=== PATIENT | female | born 1945 | race Caucasian/White ===

== ENCOUNTER → 2016-10-16 | Outpatient (CLI) | payer OTHER ==
[~2016-10-16] MED LIST: ATOR10TA88 PO; CLTP PO; COEN1CAP10 PO; CYAN1SUB12 PO; EFFSR75 PO; EST5 PO; FISHOIL PO; MULT-506 PO; PANT1TAB48 PO; TUMMERIC PO; VENL150C56 PO
[2016-10-16 18:28] LABS: BASO % 0.5 %; BASO ABS # 0.03 K/uL (0-0.2); COMPLETE YES; EOS % 0.9 %; HEMATOCRIT 40.2 % (37-47); IG% 0.3 %; LYMPH % 36.2 %; LYMPH ABS # 2.11 K/uL (1.2-3.4); MEAN CELL VOLUME 92.8 fL (80-100); MEAN CORPUSCULAR HEMOGLOBIN 31.6 pg (25-34); MEAN CORPUSCULAR HGB CONC 34.1 g/dl (32-36); MEAN PLATELET VOLUME 10.5 fL (7.4-10.4); MONO % 9.1 %; PLATELET COUNT 262 K/uL (130-400); RED BLOOD COUNT 4.33 M/uL (4.2-5.4); WHITE BLOOD COUNT 5.83 K/uL (4.8-10.8)
[2016-10-16 18:31] LABS: ALT/SGPT 25 U/L (12-78); BLOOD UREA NITROGEN 11 mg/dl (7-18); BUN/CREATININE RATIO 14.4 (10-20); CALCIUM 8.8 mg/dl (8.5-10.1); CARBON DIOXIDE 28 mmol/L (21-32); CHLORIDE 104 mmol/L (98-107); CHOLESTEROL 225 mg/dl (0-200); CREATININE 0.75 mg/dl (0.60-1.20); GLUCOSE 88 mg/dl (70-99); SODIUM 140 mmol/L (136-145); TRIGLYCERIDES 113 mg/dl (0-150); VERY LOW DENSITY LIPOPROT CALC 23 mg/dl
[2016-10-16 18:34] LABS: ALB/GLOB RATIO 1.2 (0.9-2); ALKALINE PHOSPHATASE 71 U/L (45-117); AST/SGOT 15 U/L (15-37); CHOLESTEROL/HDL RATIO 3.8; HDL CHOLESTEROL 60 mg/dl; LDL CHOLESTEROL CALCULATED 142 mg/dl
== END | disposition home or self-care (01) ==
LOC: C.LABSPEC 17:57
PROVIDERS: ATTEND Family Medicine
DX: E78.2 Mixed hyperlipidemia (principal); K21.9 Gastro-esophageal reflux disease without esophagitis; F41.1 Generalized anxiety disorder

== ENCOUNTER → 2017-07-10 | Outpatient (CLI) | payer OTHER ==
[~2017-07-10] MED LIST changes: +ATOR10TA82 PO; -ATOR10TA88 PO; +PANT1TAB3 PO; -PANT1TAB48 PO
== END | disposition home or self-care (01) ==
LOC: C.LABSPEC 18:01
PROVIDERS: ATTEND Family Medicine
DX: R30.0 Dysuria (principal)

== ENCOUNTER 2018-06-17 05:49 | Inpatient (IN) ==
--- NOTE | 2018-05-27 16:22 | PAT Medication Instructions ---
Medication Instructions Date of Service May 27, 2018 Home Medications calcium carbonate-vitamin D3 2 tab PO QAM carbamazepine 200 mg PO QPM estradiol 0.5 mg PO QAM fluoxetine 40 mg PO QAM multivitamin 1 tab PO QAM pantoprazole 40 mg PO QAM ASK your prescriber and surgeon estradiol 0.5 mg PO QAM DO NOT take the morning of surgery calcium carbonate-vitamin D3 2 tab PO QAM multivitamin 1 tab PO QAM Take morning of surgery With a small sip of water, OTHERWISE NOTHING TO EAT OR DRINK AFTER MIDNIGHT: fluoxetine 40 mg PO QAM pantoprazole 40 mg PO QAM Take evening before surgery carbamazepine 200 mg PO QPM Other Notes If you have any questions please call us at [phone] or [phone] or [phone] or [phone]
--- NOTE | 2018-05-28 09:37 | Anesthesiology Consultation ---
Date of Service May 28, 2018 Assessment & Plan (1) Encounter for pre-operative examination: - Possible difficult intubation due to decreased cervical extension. Chart Review Chart Review: Acceptable Risk for Surgery and Patient seen in Pre Admission Testing Teaching & Discussion Pre-Anesthesia Teaching/Discussion Notes: Instructed NPO after midnight before surgery,except medications with 15 cc of water. Medication instructions provided according to the PAT guidelines. History Surgery Operation Date: 06/17/18 11:55 Proposed Procedures p C4-C6 Anterior Cervical Discectomy and Fusion - Cullen Amato DO Height/Weight Height: 5 ft 4 in Weight: 81.9 kg Allergies Allergy/AdvReac Type Severity Reaction Status Date / Time No Known Allergies Allergy Mild Verified 05/21/18 09:25 Medications Home Medications Medication Instructions Recorded Confirmed Last Taken calcium carbonate-vitamin D3 2 tab PO QAM 05/21/18 05/21/18 Unknown [Calcium 600 + D(3)] carbamazepine 200 mg PO QPM 05/21/18 05/21/18 Unknown estradiol 0.5 mg PO QAM 05/21/18 05/21/18 Unknown fluoxetine 40 mg PO QAM 05/21/18 05/21/18 Unknown multivitamin 1 tab PO QAM 05/21/18 05/21/18 Unknown pantoprazole 40 mg PO QAM 05/21/18 05/21/18 Unknown Past Medical History Medical History Anxiety Depression Diverticular disease Emphysema lung PER CXR GERD (gastroesophageal reflux disease) CONTROLLED Hiatal hernia Hyperlipidemia NO MEDS Obesity Osteoarthritis Peripheral neuropathy HANDS AND FEET/LEGS Past Family History Family History Sister Family history of diabetes mellitus Sister Family history of diabetes mellitus Brother Family history of diabetes mellitus Past Surgical History Surgical History Fusion of spine LUMBAR H/O exploratory laparotomy 2/2 ADHESIONS History of section X3 History of cholecystectomy History of hysterectomy History of neck surgery FUSION History of repair of rotator cuff LEFT Past Anesthesia History No Hx of Anesthesia Complications and No Family Hx of Anesthesia Complications History of PONV No Motion Sickness Screening History of Motion Sickness: No STOP BANG Total 2 Social History Smoking Status: Never smoker Do You Dip or Chew Tobacco: No Hx Alcohol Use: No Hx Substance Use: No substance use type: does not use Exercise / Class Metabolic Activity III < 4 Walking/Shop/Light housework Review of Systems Reflux controlled. Patient denies chest pain, shortness of breath, cough, wheezing, palpitations. Physical Exam Vital Signs VITALS BP 105/69 P 75 TEMP 98.0 SP02 95%RA RESP 18 PHYSICAL Decreased cervical extension Full TMJ range of motion. TMD 3 finger breaths Mallampati Score 2 Dentition: missing molars Lungs: clear throughout to auscultation Cardiac: regular rate and rhythm, no murmurs noted Spine: normal Carotid arteries: negative bruit Extremities: no edema Testing Electrocardiogram Date: 05/28/18 Findings: + NSR @ (71) Chest X-Ray Date: 05/28/18 Findings: + NAD Stable 8 mm nodule within the right midlung zone. Given the long-term stability this is likely benign. Mild emphysema. Laboratory Results 05/28/18 09:44 05/28/18 09:44 Blood Type A Positive 05/28/18 09:44 Antibody Screen NEGATIVE 05/28/18 09:44 PT 10.4 Seconds (9.0-12.0) 05/28/18 09:44 INR 1.0 (0.9-1.1) 05/28/18 09:44 APTT 25.1 Seconds (21.0-31.0) 05/28/18 09:44 Urine Color Dark Yellow 05/28/18 09:44 Urine Appearance Clear (Clear) 05/28/18 09:44 Urine pH 5.5 (4.5-7.5) 05/28/18 09:44 Ur Specific [place] 1.021 (1.000-1.030) 05/28/18 09:44 Urine Protein Negative (Negative) 05/28/18 09:44 Urine Glucose (UA) Negative (Negative) 05/28/18 09:44 Urine Ketones Trace (Negative) H 05/28/18 09:44 Urine Nitrite Negative (Negative) 05/28/18 09:44 Ur Leukocyte Esterase Negative (Negative) 05/28/18 09:44
[2018-05-28 10:43] LABS: Appearance Urine Clear (Clear); Bilirubin Urine Negative (Negative); Blood Urine Negative (Negative); Color Urine Dark Yellow; Glucose Urine UA Negative (Negative); Ketones Urine Trace (Negative); Leukocyte Esterase Urine Negative (Negative); Nitrite Urine Negative (Negative); Protein Urine Negative (Negative); Specific Gravity Urine 1.021 (1.000-1.030); Urobilinogen Urine Negative (Negative); pH Urine 5.5 (4.5-7.5)
[2018-05-28 10:48] LABS: Basophils # (auto) 0.03 K/uL (0-0.2); Basophils % (auto) 0.7 %; Eosinophils # (auto) 0.04 K/uL (0-0.5); Hematocrit (blood only) 40.8 % (37-47); Hemoglobin 13.9 g/dL (12.0-16.0); Lymphocytes # (auto) 1.33 K/uL (1.2-3.4); Lymphocytes % (auto) 32.1 %; Mean Corpuscular Hgb Conc 34.1 g/dL (32-36); Mean Platelet Volume 9.8 fL (7.4-10.4); Monocytes # (auto) 0.45 K/uL (0.11-0.59); Monocytes % (auto) 10.9 %; Neutrophils # (auto) 2.29 K/uL (1.4-6.5); Neutrophils % (auto) 55.3 %; Platelet Count 254 K/uL (130-400); RDW Coefficient of Variation 12.5 % (11.5-14.5); RDW Standard Deviation 43.1 fL (36.4-46.3); Red Blood Count 4.34 M/uL (4.2-5.4); White Blood Count 4.14 K/uL (4.8-10.8)
--- NOTE | 2018-05-28 10:49 | XRay Report ---
XR chest Pre-admission PA/Lat HISTORY: Preop. COMPARISON: Chest 07/10/2011. FINDINGS: Stable 8 mm nodule within the right midlung zone. Given the long-term stability this is lik yovana benign. Mild emphysema. No pneumothorax. No pleural effusions. Cervical spinal fusion hardware is noted. Prior cholecystectomy. The heart is normal in size. The left lung is clear. IMPRESSION: No significant change compared to the prior study. No acute process. Electronically signed by: Gennaro Michael M.D. 05/28/2018 10:48 AM
[2018-05-28 10:50] LABS: Calcium 8.8 mg/dl (8.5-10.1); Creatinine Clr Calc Pharmacy 75.1 ml/min; Est GFR (African American) 99.7
[2018-05-28 10:52] LABS: Partial Thromboplastin Ratio 0.9; Partial Thromboplastin Time 25.1 Seconds (21.0-31.0); Prothrombin Time 10.4 Seconds (9.0-12.0)
[2018-06-17] MEDS ORDERED: ACETAMINOPHEN 500 MG TAB PO SCH (06:00)
[2018-06-17] MEDS ORDERED: GABAPENTIN 300 MG PO SCH (06:00)
[2018-06-17] MEDS ORDERED: LR 15ML/HR IV SCH (06:00)
[2018-06-17] MEDS ORDERED: CEFAZOLIN 2000MG 2,000 MG/15 ML SYR IV SCH (06:00)
[2018-06-17] MEDS ORDERED: CeleBREX 200 MG CAP PO SCH (06:00)
[2018-06-17] MEDS ORDERED: DEXAMETHASONE SOD INJ 4 MG/ML VIAL ONE (06:53)
[2018-06-17] MEDS ORDERED: ONDANSETRON INJ 2 MG/ML 2 ML VIAL ONE (06:53)
[2018-06-17] MEDS ORDERED: LIDOCAINE HCL 2% 2 ML VIAL/AMP(20MG/ML) INFIL ONE (06:53)
[2018-06-17] MEDS ORDERED: GLYCOPYRROLATE 0.2 MG/ML VIAL ONE (06:53)
[2018-06-17] MEDS ORDERED: NEOSTIGMINE METHYLSULFATE 1 MG/ML 10ML VIAL ONE (06:53)
[2018-06-17] MEDS ORDERED: PROPOFOL IV EMULSION 10 MG/ML 20 ML VIAL IV ONE (06:53)
[2018-06-17] MEDS ORDERED: MIDAZOLAM HCL 1 MG/ML 2ML VIAL ONE (06:54)
[2018-06-17] MEDS ORDERED: fentaNYL citrate 100 MCG/2 ML VIAL ONE ×2 (06:54→08:12)
[2018-06-17] MEDS ORDERED: BACITRACIN INJ 50,000 UNIT VIAL ONE (07:04)
--- NOTE | 2018-06-17 07:29 | History & Physical Bridge Note ---
Date of Service June 17, 2018 History & Physical Bridge Note I have examined the patient, reviewed the History & Physical and in the interval since the performance of the History & Physical I have noted the following changes of clinical significance: no changes noted
[2018-06-17] MEDS ORDERED: ATROPINE SULFATE 0.1 MG/ML 10ML SYR IV PRN (07:32)
[2018-06-17] MEDS ORDERED: ePHEDrine sulfate 50 MG/ML AMP IV PRN (07:32)
[2018-06-17] MEDS ORDERED: ONDANSETRON INJ 2 MG/ML 2 ML VIAL IV PRN ×2 (07:32→10:51)
--- NOTE | 2018-06-17 07:35 | History & Physical Report ---
Date of Service June 17, 2018 Assessment & Plan (1) Cervical stenosis of spinal canal: Anterior cervical discectomy and fusion C4-5 Present on Admission?: Yes History of Present Illness Chief Complaint: Neck and arm pain Primary Care Provider: Flaquito Ward This is a 73-year-old female but with presents with chronic persistent neck and arm pain. After failing extensive course of nonoperative care she is here for surgical intervention. Allergies Allergy/AdvReac Type Severity Reaction Status Date / Time No Known Allergies Allergy Mild Verified 06/17/18 06:16 Home Medications Home Medications Medication Instructions Recorded Confirmed Type calcium carbonate-vitamin D3 2 tab PO QAM 05/21/18 06/17/18 History [Calcium 600 + D(3)] carbamazepine 200 mg PO QPM 05/21/18 06/17/18 History estradiol 0.5 mg PO QAM 05/21/18 06/17/18 History fluoxetine 40 mg PO QAM 05/21/18 06/17/18 History multivitamin 1 tab PO QAM 05/21/18 06/17/18 History pantoprazole 40 mg PO QAM 05/21/18 06/17/18 History Past Med/Surg History Family History Sister Family history of diabetes mellitus Sister Family history of diabetes mellitus Brother Family history of diabetes mellitus Social History Preferred Language: Occitan Communication Ability: Effective Pest Control Pilot Required: No Beliefs That Will Affect Care: None Current Living Situation: Spouse Other Information That Helps Us Care for You: No Feels Safe at Home: Yes Safety Concerns: Feels Safe At This Time Smoking Status: Never smoker Hx Alcohol Use: No Hx Substance Use: No Physical Exam Vital Signs (Past 24 Hours): Last Vital Signs Temp 36.7 C 06/17/18 06:30 Pulse 75 06/17/18 06:30 Resp 20 06/17/18 06:30 BP 148/77 H 06/17/18 06:30 Pulse Ox 96 06/17/18 06:30 Results & Data Medications Administered Acetaminophen (Tylenol) 1,000 mg PO PREOP PRITESH Stop: 06/17/18 18:00 Last Admin: 06/17/18 06:33 Dose: 1,000 mg Documented by: [id number] Celecoxib (Celebrex) 200 mg PO PREOP PRITESH Stop: 06/17/18 18:00 Last Admin: 06/17/18 06:32 Dose: 200 mg Documented by: [id number] Gabapentin (Neurontin) 300 mg PO PREOP PRITESH Stop: 06/17/18 18:00 Last Admin: 06/17/18 06:33 Dose: 300 mg Documented by: [id number] Lactated Ringer's (Lr) 1,000 mls @ 15 mls/hr IV .Q24H PRITESH Stop: 06/18/18 05:59 Last Admin: 06/17/18 06:32 Dose: 15 mls/hr Documented by: [id number]
[2018-06-17] MEDS ORDERED: ROCURONIUM BROMIDE 10 MG/ML 5 ML VIAL ONE (08:48)
[2018-06-17] MEDS ORDERED: FLOSEAL HEMOSTATIC MATRIX 10ML TOP ONE (08:49)
--- NOTE | 2018-06-17 09:00 | Operative Report ---
Post Operative Report Pre & Post Diagnosis Operation Date: 06/17/18 07:45 Pre-Op Diagnosis: Cervical spinal stenosis with radiculopathy Post-Op Diagnosis: Same Procedure Operation Date: 06/17/18 07:45 Actual Procedures #1 anterior cervical discectomy bilateral foraminotomies C4-5 per #2 anterior cervical arthrodesis C4-5 per #3 placement of cortical autograft 7 mm in height filled with DBM C4-5. 4 placement of globus plate and screws at C4-5. Surgeon Cullen Amato DO Tenter Comfort Cobos Estimated Blood Loss 10 Findings Consistent with Post-Op Diagnosis Specimens None Description of Procedure Patient was met with preoperatively case discussed all questions addressed. After informed consent obtained patient was taken to the operative suite underwent intubation and placed in supine position the Delmar table with head Pavon kettle operator head. All bony prominences well-padded eyes inspected to ensure no external pressure placed upon the peer at this point the anterior cervical spine was prepped and draped in the normal sterile fashion. With the assistance of fluoroscopy the C4-5 disc space was identified and a transverse incision was placed on the right anterior aspect of the cervical spine overlying this region. Sharp dissection the assistance of bipolar electrocautery was performed down to and exposing the anterior cervical spine at C4-5. I verified my position with fluoroscopy. Self-retaining retractors placed. Also used [place] distracting pins. Removed the entire disc including all posterior annular fibers and longitudinal ligament to perform bilateral foraminotomies. Endplates were then burred to subcortical bleeding bone and a 7 mm cortical allograft filled with DBM tamped in position. Globus plate was also attached and locked into position with fluoroscopic visualization. The incision was then copiously irrigated and explored to ensure no damage to surrounding structures remaining bleeding. 10 round DOLLY drain inserted. Incision was then closed with 2 Vicryl fascia for Monocryl final skin closure. Steri-Strips dressings placed. Patient will continue to PACU stable condition. Please note Comfort Cobos present at the entire procedure involved the patient positioning complex portions of the surgery and final skin closure. I attest to the content of the Intraoperative Record and any orders documented therein. Any exceptions are noted below.
--- NOTE | 2018-06-17 09:26 | Fluoroscopy Report ---
FL cervical 2-3V HISTORY: 73 years-old Female ACDF C4-C5 status post fusion of the cervical spine COMPARISON: Cervical spine MRI 08/10/2010 TECHNIQUE: 2 spot fluoroscopic images of the cervical spine were obtained utilizing 6.7 seconds fluor oscopy time FINDINGS: The study is limited secondary to overlying soft tissue obscuring the lower cervical spinal segments. Anterior fusion hardware changes noted at the C4-C5 and C5-C6 levels. Alignment appears satisfactory on these images. Note is made of spondylitic spurring with facet arthrosis. Endotracheal tube overli es the midline. IMPRESSION: Fluoroscopic assistance as above. The above report was generated using voice recognition software. It may contain grammatical, syntax o r spelling errors. Electronically signed by: Juancho Marti M.D. 06/17/2018 9:25 AM
[2018-06-17] MEDS: fentaNYL citrate 100 MCG/2 ML VIAL IV PRN ×2 (09:47→09:52)
[2018-06-17] MEDS: HYDROmorphone INJ 1 MG/ML SYRINGE IV PRN ×4 (10:00→10:15)
--- NOTE | 2018-06-17 10:43 | Anesthesiology Progress Note ---
Date of Service June 17, 2018 Anesthesia Post Procedure Vital Signs Vital Signs: Temp Pulse Pulse Resp BP Pulse Ox 06/17/18 10:35 36.8 C 91 H 15 140/67 99 06/17/18 10:25 89 19 137/67 98 06/17/18 10:15 85 16 139/77 99 06/17/18 10:05 85 16 153/72 H 99 06/17/18 09:55 81 16 145/75 H 100 06/17/18 09:45 84 16 150/73 H 100 06/17/18 09:35 91 H 16 152/76 H 100 06/17/18 09:25 95 H 16 149/71 H 97 06/17/18 09:15 87 16 141/69 H 96 06/17/18 09:09 36.0 C L 86 16 159/74 H 96 06/17/18 06:30 36.7 C 75 20 148/77 H 96 Pain Intensity Neck: Pain Intensity: 4 Notes Mental Status: alert / awake / arousable and participated in evaluation Patient Amnestic to Procedure: Yes Nausea / Vomiting: adequately controlled Pain: adequately controlled Airway Patency, RR, SpO2: stable & adequate BP & HR: stable & adequate Hydration State: stable & adequate Anesthetic Complications: no major complications apparent and Pt Satisfied with anesthetic care
[2018-06-17] MEDS ORDERED: DO NOT ADMINISTER FLU VACCINE PRN (10:51)
[2018-06-17] MEDS ORDERED: LORazepam 0.5 MG/1 ML VIAL IV PRN (10:51)
[2018-06-17] MEDS ORDERED: RACEPINEPHRINE 2.25% NEBU SOLN 0.5 ML VIAL INH PRN (10:51)
[2018-06-17] MEDS ORDERED: DiphenhydrAMINE HCL 50 MG/ML VIAL IV PRN (10:51)
[2018-06-17] MEDS ORDERED: ACETAMINOPHEN 1,000 MG/100 ML VIAL IV PRN (10:51)
[2018-06-17] MEDS ORDERED: NALOXONE HCL 0.4 MG/1 ML VIAL/CARP IV PRN (10:51)
[2018-06-17] MEDS ORDERED: DO NOT ADMINISTER PNEUMOCOCCAL VACCINE PRN (10:51)
[2018-06-17] MEDS ORDERED: DEXAMETHASONE SOD PHOSPHATE 8 MG in SYRINGE 0 ML IV PRN (10:51)
[2018-06-17] MEDS ORDERED: MAGNESIUM HYDROXIDE SUSP 30 ML UDC PO PRN (10:51)
[2018-06-17] MEDS ORDERED: SCOPOLAMINE 1.5 MG TDSY TD SCH (12:00)
[2018-06-17] MEDS: LACTATED RINGER'S 1,000 ML IV SCH ×2 (12:05→23:39)
[2018-06-17] MEDS: OXYCODONE HCL IR 5 MG TAB (IMMEDIATE RELEASE) PO PRN ×2 (14:33→20:31)
[2018-06-17] MEDS: CEFAZOLIN 2000MG 2,000 MG/15 ML SYR IV SCH ×2 (16:03→23:38)
[2018-06-17] MEDS: CHECK SCOPOLAMINE PATCH PLACEMENT SCH ×2 (16:31→23:38)
[2018-06-17] MEDS: HYDROmorphone INJ 0.5 MG/0.5 ML SYR IV PRN ×2 (18:06→23:02)
[2018-06-17] MEDS: DOCUSATE SODIUM 100 MG CAP PO SCH (20:36)
[2018-06-17] MEDS: CARBAMAZEPINE 200 MG TABCR PO SCH (20:36)
[2018-06-17] MEDS: LORazepam 0.5 MG TAB PO PRN (21:59)
[2018-06-18] MEDS: OXYCODONE HCL IR 5 MG TAB (IMMEDIATE RELEASE) PO PRN ×3 (06:55→19:30)
[2018-06-18] MEDS: CEFAZOLIN 2000MG 2,000 MG/15 ML SYR IV SCH (07:37)
[2018-06-18] MEDS: HYDROmorphone INJ 0.5 MG/0.5 ML SYR IV PRN ×2 (07:37→21:50)
[2018-06-18] MEDS: CHECK SCOPOLAMINE PATCH PLACEMENT SCH ×3 (07:37→23:43)
--- NOTE | 2018-06-18 08:05 | Anesthesiology Progress Note ---
Date of Service June 18, 2018 Anesthesia Post Procedure Vital Signs Vital Signs: Temp Pulse Pulse Pulse Resp BP Pulse Ox 06/18/18 07:55 06/18/18 07:44 69 16 94 06/18/18 07:06 36.5 C 70 19 129/68 100 06/18/18 05:55 36.5 C 71 18 128/69 97 06/18/18 03:55 36.5 C 67 16 121/69 97 06/18/18 03:25 74 16 98 06/18/18 01:55 36.5 C 72 18 128/71 97 06/17/18 23:55 36.7 C 79 18 127/72 97 06/17/18 23:00 89 18 98 06/17/18 22:01 36.7 C 79 20 142/75 H 99 06/17/18 20:45 76 98 06/17/18 19:55 36.6 C 89 18 131/72 98 06/17/18 19:25 93 H 14 99 06/17/18 18:05 36.7 C 86 16 125/74 98 06/17/18 16:41 83 98 06/17/18 15:54 36.7 C 90 20 125/65 98 06/17/18 13:56 36.6 C 97 H 16 127/75 97 06/17/18 12:50 36.4 C L 98 H 16 126/74 97 06/17/18 11:55 36.6 C 94 H 16 117/68 97 06/17/18 11:29 36.5 C 87 16 119/69 98 06/17/18 11:17 87 18 98 06/17/18 10:55 36.5 C 96 H 18 136/70 98 06/17/18 10:45 36.8 C 90 16 138/67 99 06/17/18 10:35 36.8 C 91 H 15 140/67 99 06/17/18 10:25 89 19 137/67 98 06/17/18 10:15 85 16 139/77 99 06/17/18 10:05 85 16 153/72 H 99 06/17/18 09:55 81 16 145/75 H 100 06/17/18 09:45 84 16 150/73 H 100 06/17/18 09:35 91 H 16 152/76 H 100 06/17/18 09:25 95 H 16 149/71 H 97 06/17/18 09:15 87 16 141/69 H 96 06/17/18 09:09 36.0 C L 86 16 159/74 H 96 Pulse Ox 06/18/18 07:55 98 06/18/18 07:44 06/18/18 07:06 06/18/18 05:55 06/18/18 03:55 06/18/18 03:25 06/18/18 01:55 06/17/18 23:55 06/17/18 23:00 06/17/18 22:01 06/17/18 20:45 06/17/18 19:55 06/17/18 19:25 06/17/18 18:05 06/17/18 16:41 06/17/18 15:54 06/17/18 13:56 06/17/18 12:50 06/17/18 11:55 06/17/18 11:29 06/17/18 11:17 06/17/18 10:55 98 06/17/18 10:45 06/17/18 10:35 06/17/18 10:25 06/17/18 10:15 06/17/18 10:05 06/17/18 09:55 06/17/18 09:45 06/17/18 09:35 06/17/18 09:25 06/17/18 09:15 06/17/18 09:09 Pain Intensity Neck: Pain Intensity: 8 Left Shoulder: Pain Intensity: 8 Notes Mental Status: alert / awake / arousable and participated in evaluation Patient Amnestic to Procedure: Yes Nausea / Vomiting: adequately controlled Pain: adequately controlled Airway Patency, RR, SpO2: stable & adequate BP & HR: stable & adequate Hydration State: stable & adequate Anesthetic Complications: no major complications apparent and Pt Satisfied with anesthetic care
[2018-06-18] MEDS: FLUOXETINE HCL 20 MG CAP PO SCH (08:32)
[2018-06-18] MEDS: PANTOprazole 40 MG TAB PO SCH (08:32)
[2018-06-18] MEDS: CALCIUM 600MG + VIT D 400 IU TAB PO SCH (08:32)
[2018-06-18] MEDS: MULTIVITAMIN TAB PO SCH (08:32)
[2018-06-18] MEDS: ESTRADIOL 1 MG TAB PO SCH (08:32)
[2018-06-18] MEDS: DOCUSATE SODIUM 100 MG CAP PO SCH ×2 (08:33→20:48)
--- NOTE | 2018-06-18 10:06 | Orthopedic Progress Note ---
Date of Service June 18, 2018 Assessment & Plan (1) Cervical stenosis of spinal canal: Patient continues to have some left arm symptoms postoperative. This is more along the lines of the C6-7 pattern. We addressed the 4 5 level. I will give her a short course of IV steroids to see how she responds. We may need to consider further imaging of the neck if she fails to improve. Present on Admission?: Yes Subjective Patient complaining of some cervicalgia and left shoulder and arm pain. This is new in onset. Physical Exam Vital Signs (Past 24 Hours): Last Vital Signs Temp 36.5 C 06/18/18 09:40 Pulse 72 06/18/18 09:40 Resp 15 06/18/18 09:40 BP 132/75 06/18/18 09:40 Pulse Ox 96 06/18/18 09:40 Physical Exam: On exam she is somewhat uncomfortable. DOLLY drain decreasing ap propriately. Is reasonable strength testing upper extremity on the left and right. Does exhibit tenderness to palpation of the parascapular region on the left.
[2018-06-18] MEDS: DEXAMETHASONE SOD PHOSPHATE 8 MG in SYRINGE 0 ML IV SCH ×2 (11:16→19:31)
[2018-06-18] MEDS: LORazepam 0.5 MG TAB PO PRN (20:47)
[2018-06-18] MEDS: CARBAMAZEPINE 200 MG TABCR PO SCH (20:48)
[2018-06-19] MEDS: DEXAMETHASONE SOD PHOSPHATE 8 MG in SYRINGE 0 ML IV SCH (03:47)
[2018-06-19] MEDS: ESTRADIOL 1 MG TAB PO SCH (08:30)
[2018-06-19] MEDS: CHECK SCOPOLAMINE PATCH PLACEMENT SCH (08:30)
[2018-06-19] MEDS: PANTOprazole 40 MG TAB PO SCH (08:31)
[2018-06-19] MEDS: CALCIUM 600MG + VIT D 400 IU TAB PO SCH (08:31)
[2018-06-19] MEDS: FLUOXETINE HCL 20 MG CAP PO SCH (08:31)
[2018-06-19] MEDS: MULTIVITAMIN TAB PO SCH (08:31)
[2018-06-19] MEDS: DOCUSATE SODIUM 100 MG CAP PO SCH (08:31)
[2018-06-19] MEDS: OXYCODONE HCL IR 5 MG TAB (IMMEDIATE RELEASE) PO PRN (08:34)
[2018-06-19] MEDS ORDERED: BISACODYL 5 MG TABEC PO PRN (09:00)
--- NOTE | 2018-06-19 13:54 | Discharge Summary ---
Date of Service June 19, 2018 Admission HPI Per Admitting Provider This is a 73-year-old female but with presents with chronic persistent neck and arm pain. After failing extensive course of nonoperative care she is here for surgical intervention. Principal Diagnosis Cervical spinal stenosis with radiculopathy Discharge Data Allergies Allergy/AdvReac Type Severity Reaction Status Date / Time No Known Allergies Allergy Mild Verified 06/17/18 06:16 Procedures Performed Operation Date: 06/17/18 07:45 Actual Procedures p C4-C5 Anterior Cervical Discectomy and Fusion(Not Applicable) - Cullen Amato DO Ordered Studies 06/17/18 07:45 FL cervical 2-3V Routine FL fluoroscopy <1hr Routine Hospital Course (1) Cervical stenosis of spinal canal: Patient underwent anterior cervical discectomy and fusion tolerated this well was taken to the orthopedic floor. Postoperatively she was having significant cervicalgia and arm symptoms week elected to keep her 1 more day. She did well the following day DOLLY drain decreasing appropriately. Subsequently discharged home. Discharge orders and instructions found in the chart for further review. Total Time Total Time Spent Total Time Spent (In Minutes): Not applicable Discharge Plan Discharge Items Patient Disposition: Home - Self-Care Reason For Visit: Spinal Stenosis, Cervical Region Discharge Diagnosis: cervical stenosis Discharge Goals: Decrease discomfort Activity: Per 'Additional Instructions' section Non-emergency contact: Primary Care Provider Call non-emergency contact if: you have any medication questions Follow-up/Referrals: Flaquito Ward DO [Primary Care Provider] - Diet: Regular Addtl Provider Instructions: ACTIVITY RECOMMENDATIONS: SELF CARE INSTRUCTIONS AFTER CERVICAL FUSIONS 1. No smoking. Smoking drastically decreases the chance of a solid fusion. 2. No bending, lifting more than 5 pounds, or twisting (roll like a log when turning in bed). 3. You may shower 3 days after surgery. Thoroughly dry wound. Do not soak in the tub. 4. Cervical collar: Must be worn at all times including sleeping. You may remove the brace only to bath, eat and if you are sitting in a recliner. 5. Please walk as much as you can for exercise. Gradually increase the distance that you walk as your endurance increases. SPECIAL CARE INSTRUCTIONS: VERY IMPORTANT TO READ AND REVIEW A. Do not take any anti-inflammatory medications (i.e. Indocin, Advil, Aspirin, Naprosyn, Aleve, Motrin, etc.) as these may inhibit the chance of a solid fusion. Tylenol is okay to take. B. Your surgical incision has been closed with a cosmetic suture under the skin that will dissolve in about 6 weeks. In 14 days, you can use a pair of clean scissors and cut the suture that is left outside of the skin at the ends of your incision. C. Complications are uncommon, but please contact us if you have any signs or symptoms of: 1. wound infection (fever higher than 102.5 degrees F, redness, separation of wound, drainage, or increasing pain from the incision) 2. blood clots in legs (pain, swelling, redness and warmth in legs) 3. urinary tract infection (fever higher than 102.5 degrees, burning upon urination or increased frequency of urination) 4. nerve problems (inability to walk on your toes or heels, numbness, loss of bowel or bladder control) 5. any other symptoms that concern you. D. Please call the office at if you have any concerns or questions about your operation or recovery. MANAGING PAIN AFTER SPINAL SURGERY 1. Narcotic medication is intended for short-term use and will be provided for surgical pain. Surgical pain usually lasts for a period of 4-6 weeks. Narcotic medication includes Percocet, Vicodin, Darvocet, Tylenol #3 or Lortab. 2. Longer-term pain is more appropriately treated with non-narcotic medication such as Tylenol ES. 3. Muscle spasm is not appropriately treated with narcotics. Muscle relaxers such as Soma, Flexeril or Skelaxin can be used along with Tylenol ES. 4. Remember that we all live with some "aches and pains". This is not unusual or uncommon after an injury or as we get older. 5. We will provide appropriate medication within the normal guidelines of their prescribed use. We will also be very cautious and aware of potential abuse and extended duration of patients' medication needs. 6. Please allow 2-3 days to process refills. Prescriptions will not be mailed but must be picked up at the office. FOLLOW UP VISIT: Keep your scheduled follow-up appointment. Any questions, please call the office at . Prescriptions: New oxycodone 5 mg Tablet 5 mg PO Q4H PRN (Reason: Pain) Qty: 30 RF: 0 Continued multivitamin Tablet 1 tab PO QAM RF: 0 fluoxetine 40 mg Capsule 40 mg PO QAM RF: 0 pantoprazole 40 mg Tablet,Delayed Release (Dr/Ec) 40 mg PO QAM RF: 0 estradiol 0.5 mg Tablet 0.5 mg PO QAM RF: 0 Calcium 600 + D(3) 600 mg calcium- 200 unit Capsule 2 tab PO QAM RF: 0 carbamazepine 200 mg tablet extended release 12 hr 200 mg PO HS RF: 0 Stand-Alone Forms: [facility] [employer], Opioid Pain Management [facility]/Other Patient Handouts: Neuropathy Peripheral Discharge Orders: Discharge Order (Routine); Ordered 06/19/18 Ordered By: Cullen Amato Admission Data Admit Date/Time: 06/17/18 09:04 Attending Provider: Cullen Amato Admit Provider: Cullen Amato Primary Care Provider: Flaquito Ward Service: Surgical Services Other Interventions: Discharge Summary Assessment (RN) Last Done: 06/19/18 09:57 DC Date/Time DO NOT enter until pt leaves facility: 06/19/18 10:27
== END 2018-06-19 10:27 | disposition home or self-care (01) | DRG 473 ==
LOC: ASU 05:49 → 3E 09:04

== ENCOUNTER 2018-10-01 23:53 | Inpatient (IN) ==
--- OUTSIDE RECORDS SUMMARY | 2018-10-02 01:43 | External Medical Summary | Continuity of Care Document ---
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 Rogers Saravia Start: 07-Jan-2013 Quantity: 25 Refills: 0 FLUoxetine HCl CAPS; 60mg BID Refills: 0 Omeprazole 20 MG Oral Tablet Delayed Release; Take 1 tablet daily Refills: 0 Fish Oil 1000 MG Oral Capsule; TAKE 1 CAPSULE DAILY. Refills: 0 Calcium 600 + D TABS; Take 1 tablet twice daily Refills: 0 Aspirin 81 MG TABS; TAKE 1 TABLET DAILY. Rogers Saravia Start: 07-Jan-2013 Quantity: 30 Refills: 0 Metoprolol Succinate ER 25 MG Oral Table t Extended Release 24 Hour; TAKE 1 TABLET BY MOUTH DAILY Rogers Saravia Start: 07-Jan-2013 Quantity: 30 Refills: 0 Multi Vitamin/Minerals TABS; TAKE 1 TABLET DAILY. Refills: 0 Procedures Procedures not documented Immunizations Immunizations not documented Family History Unknown Family Member Family history of Acute Myocardial Infarction Status: Active Comments: Family History (V17.3) Family history of Cancer Status: Active Comments: Famil y History Plan of Treatment Planned Observations Planned Goals not documented Results No Known Results Results not documented
[2018-10-02] MEDS ORDERED: HYDROmorphone INJ 1 MG/ML SYRINGE IV STA (02:01)
[2018-10-02] MEDS ORDERED: ONDANSETRON INJ 2 MG/ML 2 ML VIAL IV PRN (02:33)
[2018-10-02] MEDS ORDERED: ACETAMINOPHEN 325 MG TAB PO PRN (02:33)
[2018-10-02] MEDS ORDERED: POLYETHYLENE (MIRALAX) 17 GM PACK PO PRN (02:33)
[2018-10-02] MEDS: SODIUM CHLORIDE 0.9% 1000ML 1,000 ML IV SCH ×3 (02:49→23:09)
--- NOTE | 2018-10-02 03:40 | History and Physical Report ---
DATE OF ADMISSION: 10/02/2018 CHIEF COMPLAINT: Status post fall and right ankle fracture. HISTORY OF PRESENT ILLNESS: This is a 73-year-old female with past medical history significant for depression, GERD, peripheral neuropathy, who presents with fall and right ankle fracture. The patient was watering her plants when suddenly she slipped and fell and she could not get up and she went to the [facility] ER. X-rays were done which showed right comminuted trimalleolar fracture and dislocation and it was reduced in the ER and the repeat x-ray showed highly comminuted trimalleolar fracture status post reduction improved tibio-talar alignment, but patient had significant pain and there was question of surgery and the patient wanted to get transferred to [facility] and she was transferred here. Complains of severe pain in the right ankle region status post wrapped around. Otherwise, she was doing okay. She can ambulate okay. Lives with her . Denies any headache. No blurred vision, no earache, no runny nose, no sore throat, no difficulty swallowing. No chest pain, no shortness of breath. No cough, no fever, no chills, no nausea, no abdominal pain. Normal bowel and bladder movements. No blood in the stools, no burning micturition. She recently had cervical spine surgery and that healed well. Denies any other complaints. ALLERGIES: No known drug allergies. PAST MEDICAL HISTORY: As mentioned above. PAST SURGICAL HISTORY: Carpal tunnel surgery, cervical hemilaminectomy, , colonoscopy, EGDs, laparoscopic cholecystectomy, lumbar spine fusion surgery, partial removal of the eye fluid, cataract surgery, repair of the rotator cuff on the left side, total abdominal hysterectomy with removal of tubes. MEDICATIONS: The patient is on fluoxetine 40 mg p.o. daily, oxycodone 5 mg p.o. q. 4 hours p.r.n., cyclobenzaprine 10 mg p.r.n., estradiol 0.5 mg p.o. daily, Protonix 40 mg p.o. daily, calcium plus D 2 tablets daily. FAMILY HISTORY: Significant for sister who had cancer, diabetes. SOCIAL HISTORY: , lives with her . No smoking history. No alcohol, no drug use. REVIEW OF SYMPTOMS: As per HPI. Rest of the review of systems negative. PHYSICAL EXAMINATION: GENERAL: The patient is of moderate build, not in acute distress. VITAL SIGNS: Currently not available. HEENT: No pallor, no icterus. Extraocular muscles intact. NECK: No JVD, no neck masses, no carotid bruits. CARDIOVASCULAR: S1, S2 heard, regular rate and rhythm, no murmur, no gallop. RESPIRATORY SYSTEM: Normal AP diameter. No accessory muscle use. No wheezing, no crackles. ABDOMEN: Soft, bowel sounds present, nontender. No distention. CENTRAL NERVOUS SYSTEM: Cranial nerves II-XII grossly normal. Alert and oriented. Obeys simple commands. Nonfocal. EXTREMITIES: Right lower extremity wrapped. Left lower extremity, no edema, no erythema seen. LABORATORIES: Labs are not available at this time. IMAGING STUDIES: Done at [facility] shows comminuted trimalleolar fracture with dislocation on the right side. ASSESSMENT AND PLAN: This is a 73-year-old female who presents with mechanical fall and acute right trimalleolar fracture on the right side. 1. Acute right trimalleolar fracture secondary to mechanical fall. Was transferred from [facility]. We will keep her n.p.o., IV fluids, IV antiemetics, IV pain meds p.r.n. Get a chest x-ray and EKG and labs. If the chest x-ray, EKG, and labs are okay, the patient should be at acceptable risks to proceed with surgery. Will consult orthopedics. 2. History of peripheral neuropathy. The patient is no longer taking carbamazepine. 3. History of depression. Continue fluoxetine. 4. Gastroesophageal reflux disease, continue Protonix. 5. Deep venous thrombosis prophylaxis. Could not place on SCDs because of fracture of the right ankle. No anticoagulation for possible procedure. DVT prophylaxis as per orthopedics. DISPOSITION: Admit to medical floor. Expect to discharge home. PT and OT prior to discharge. Social Service to help with discharge planning. TACOS
[2018-10-02] MEDS: OXYCODONE HCL IR 5 MG TAB (IMMEDIATE RELEASE) PO PRN ×5 (03:49→23:55)
[2018-10-02] MEDS ORDERED: HYDROmorphone INJ 0.5 MG/0.5 ML SYR IV STA (04:40)
[2018-10-02 05:34] LABS: Basophils # (auto) 0.02 K/uL (0-0.2); Basophils % (auto) 0.3 %; Eosinophils # (auto) 0.02 K/uL (0-0.5); Eosinophils % (auto) 0.3 %; Hemoglobin 11.5 g/dL (12.0-16.0); Immature Granulocytes # (auto) 0.01 K/uL (0.00-0.02); Immature Granulocytes % (auto) 0.1 %; Lymphocytes # (auto) 1.89 K/uL (1.2-3.4); Mean Corpuscular Hgb Conc 32.9 g/dL (32-36); Mean Corpuscular Volume 94.3 fL (80-100); Mean Platelet Volume 9.8 fL (7.4-10.4); Monocytes # (auto) 0.62 K/uL (0.11-0.59); Monocytes % (auto) 8.5 %; Neutrophils % (auto) 64.8 %; Platelet Count 229 K/uL (130-400); RDW Coefficient of Variation 12.6 % (11.5-14.5); RDW Standard Deviation 43.1 fL (36.4-46.3); Red Blood Count 3.71 M/uL (4.2-5.4); White Blood Count 7.26 K/uL (4.8-10.8)
[2018-10-02 05:45] LABS: Partial Thromboplastin Ratio 0.9; Partial Thromboplastin Time 24.1 Seconds (21.0-31.0); Prothrombin Time 10.5 Seconds (9.0-12.0)
[2018-10-02 05:54] LABS: BUN Creatinine Ratio 15.3 (10-20); Calcium 8.2 mg/dl (8.5-10.1); Creatinine Clr Calc Pharmacy 62.5 ml/min; Est GFR (African American) 81.1; Potassium 3.9 mmol/L (3.5-5.1)
--- NOTE | 2018-10-02 07:30 | XRay Report ---
XR chest 1V portable HISTORY: pre op COMPARISON: Chest 05/28/2018. FINDINGS: Stable 8 mm nodule within the right midlung zone. This favors a benign nodule given the paris g-term stability. No new focal lung consolidations. The heart is top normal in size. This remains unc hanged. No evidence for pulmonary edema. No pleural effusions. No pneumothorax. Cervical spinal fusio n hardware is again noted. IMPRESSION: No significant change compared to the prior study. No acute process. Electronically signed by: Gennaro Michael M.D. 10/02/2018 7:29 AM
[2018-10-02] MEDS: HYDROmorphone INJ 0.5 MG/0.5 ML SYR IV PRN ×3 (07:53→21:10)
[2018-10-02] MEDS: CALCIUM 600MG + VIT D 400 IU TAB PO SCH (08:18)
[2018-10-02] MEDS: FLUOXETINE HCL 20 MG CAP PO SCH (08:18)
[2018-10-02] MEDS: PANTOprazole 40 MG TAB PO SCH (08:18)
[2018-10-02] MEDS: MULTIVITAMIN TAB PO SCH (08:18)
--- NOTE | 2018-10-02 11:48 | Orthopedic Consultation ---
Date of Consultation October 02, 2018 Assessment & Plan (1) Trimalleolar fracture of right ankle: Continue splint for now. Ice and elevation on 2 pillows. Continue current pain regimen. I increased her oxycodone from 1 tablet every 4 hours to 2 tablets every 4 hours as needed. A short-term dose of Toradol will also be given for pain control. She is also getting hydromorphone 0.5 mg IV every 3 hours. She will need ORIF of her ankle fracture. Depending on the surgical schedule, this may be done later today versus tomorrow. I will be discussing the case with [place] [facility] physicians and plan for scheduling the surgery. Addendum: Discussed the case with Dr. Tejada. He will plan on doing her surgery tomorrow morning. NPO after midnight ordered. I discussed the plan with the patient and she is in agreement. History of Present Illness Reason for Consultation: Right ankle fracture Attending Physician: Harmony Mark MD History of Present Illness Patient is a 73-year-old white female who states that yesterday evening she was out side watering her tomato plants. She ended up slipping in the grass and twisting her ankle and falling onto her leg. She had immediate pain in the ankle with some deformity and was unable to ambulate. She was taken to [facility] where she was seen by the emergency room staff. It was found that she had a trimalleolar ankle fracture. A reduction was done of the ankle there and she was placed in a splint. Patient wanted to be treated at [facility] and she was then transferred here. We have been asked to take care of her right ankle fracture. She denies any shortness of breath chest pain or lightheadedness prior to the fall or after. She denies loss of consciousness. Allergies Allergy/AdvReac Type Severity Reaction Status Date / Time No Known Allergies Allergy Mild Verified 06/17/18 06:16 Home Medications Home Medications Medication Instructions Recorded Confirmed Type Calcium 600 + D(3) 2 tab PO QAM 05/21/18 06/17/18 History estradiol 0.5 mg PO QAM 05/21/18 06/17/18 History fluoxetine 40 mg PO QAM 05/21/18 06/17/18 History multivitamin 1 tab PO QAM 05/21/18 06/17/18 History pantoprazole 40 mg PO QAM 05/21/18 06/17/18 History vitamin [id number] acid 10/02/18 History Patient History Medical History Carpal tunnel syndrome on both sides Anxiety Depression Diverticular disease Emphysema lung PER CXR GERD (gastroesophageal reflux disease) CONTROLLED Hiatal hernia Hyperlipidemia NO MEDS Obesity Osteoarthritis Peripheral neuropathy HANDS AND FEET/LEGS Surgical History S/P appy Fusion of spine LUMBAR H/O exploratory laparotomy 2/2 ADHESIONS History of section X3 History of cholecystectomy History of hysterectomy History of neck surgery FUSION History of repair of rotator cuff LEFT Family History Sister Family history of diabetes mellitus Sister Family history of diabetes mellitus Brother Family history of diabetes mellitus Social History Preferred Language: Latvian Communication Ability: Effective 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 She currently mercado s a splint on the right lower extremity. Toes are mobile and capillary refill is less than 2 seconds. She does have history of neuropathy and some decreased sensation of her toes. On palpation of the toe she states that she can feel it. Splint is left on during the exam. No other complaints of pain of the right lower extremity at the knee or hip. Left lower extremity is unaffected at the hip knee and ankle. Upper extremities are benign with good range of motion and no pain at the shoulders elbows and wrist. There is no gross motor or sensory loss seen at this time. Results & Data Vital Signs (Past 12 Hours) Vital Signs Temp Pulse Resp BP Pulse Ox 10/02/18 07:45 36.7 C 76 16 132/68 98 10/02/18 02:03 36.8 C 20 164/67 H 95
[2018-10-02] MEDS: KETOROLAC TROMETHAMINE 15 MG/ML VIAL IV SCH ×2 (13:07→18:03)
--- NOTE | 2018-10-02 13:59 | Anesthesiology Consultation ---
Date of Service October 02, 2018 Patient had ACDF in June 2018. Good neck mobility now, without radiculopathy. Glidescope used for intubation. Assessment & Plan (1) Encounter for pre-operative examination: Chart Review Chart Review: Acceptable Risk for Surgery and Patient NOT seen in Pre Admission Testing Consults Requested none Proposed Anesthesia Risk / Benefits Reviewed With: PT / POA / Parent / Guardian, Accepts Plan and Informed Consent Obtained History Surgery Operation Date: 10/03/18 08:25 Proposed Procedures p Right Open Reduction Internal Fixation Trimalleolar Fracture - Matt Tejada, Height/Weight Height: 5 ft 4 in Weight: 85 kg Allergies Allergy/AdvReac Type Severity Reaction Status Date / Time No Known Allergies Allergy Mild Verified 06/17/18 06:16 Medications Home Medications Medication Instructions Recorded Confirmed Last Taken Calcium 600 + D(3) 2 tab PO QAM 05/21/18 06/17/18 10/01/18 estradiol 0.5 mg PO QAM 05/21/18 06/17/18 10/01/18 fluoxetine 40 mg PO QAM 05/21/18 06/17/18 10/01/18 multivitamin 1 tab PO QAM 05/21/18 06/17/18 10/01/18 pantoprazole 40 mg PO QAM 05/21/18 06/17/18 10/01/18 vitamin Q88-[id number] acid 10/02/18 10/01/18 Active Medications Generic Name Dose Route Start Last Admin Trade Name Freq PRN Reason Stop Dose Admin Fluoxetine HCl 40 mg 10/02/18 09:00 10/02/18 08:18 Prozac PO 11/01/18 08:59 40 mg QAM PRITESH Administration Hydromorphone HCl 0.5 mg 10/02/18 02:33 10/02/18 11:34 Dilaudid IV 10/16/18 02:32 0.5 mg Q3H PRN Administration Pain Sodium Chloride 1,000 mls @ 100 mls/hr 10/02/18 02:33 10/02/18 13:07 Nss 1000ml IV 11/01/18 02:32 100 mls/hr .Q10H PRITESH Administration Ketorolac Tromethamine 15 mg 10/02/18 12:00 10/02/18 13:07 Toradol IV 10/02/18 18:01 15 mg Q6H PRITESH Administration Multivitamins 1 tab 10/02/18 09:00 10/02/18 08:18 Multivitamin Tab PO 11/01/18 08:59 1 tab QAM PRITESH Administration Multivitamins/Minerals 2 tab 10/02/18 09:00 10/02/18 08:18 Caltrate Plus PO 11/01/18 08:59 2 tab QAM PRITESH Administration Oxycodone HCl 5 mg 10/02/18 02:33 10/02/18 10:25 Roxicodone Immediate Rel PO 10/16/18 02:32 5 mg Q4H PRN Administration Pain Pantoprazole Sodium 40 mg 10/02/18 09:00 10/02/18 08:18 Protonix PO 11/01/18 08:59 40 mg QAM PRITESH Administration Past Medical History Medical History Carpal tunnel syndrome on both sides Anxiety Depression Diverticular disease Emphysema lung PER CXR GERD (gastroesophageal reflux disease) CONTROLLED Hiatal hernia Hyperlipidemia NO MEDS Obesity Osteoarthritis Peripheral neuropathy HANDS AND FEET/LEGS Exercise / Class Metabolic Activity II 4-5 Yardwork/Stairs/Walk up hill Past Family History Family History Sister Family history of diabetes mellitus Sister Family history of diabetes mellitus Brother Family history of diabetes mellitus Past Surgical History Surgical History S/P appy Fusion of spine LUMBAR H/O exploratory laparotomy 2/2 ADHESIONS History of section X3 History of cholecystectomy History of hysterectomy History of neck surgery FUSION History of repair of rotator cuff LEFT Past Anesthesia History No Hx of Anesthesia Complications and No Family Hx of Anesthesia Complications History of PONV No Hx of PONV and No Hx of Motion Sickness Social History Smoking Status: Never smoker Hx Alcohol Use: No Hx Substance Use: No substance use type: does not use Physical Exam Vital Signs Last Vital Signs Temp 36.7 C 10/02/18 07:45 Pulse 76 10/02/18 07:45 Resp 16 10/02/18 07:45 BP 132/68 10/02/18 07:45 Pulse Ox 98 10/02/18 07:45 ENMT Mouth: no dentition abnormality Thyromental Distance: > or= 3.5 Finger Breadths Mallampati Class: II Neck normal visual inspection Respiratory normal respiratory effort Auscultation: lungs clear to auscultation bilaterally Cardiovascular Rate/Rhythm: regular rate and regular rhythm Psychiatric Orientation: alert Testing Laboratory Results 10/02/18 05:10 10/02/18 05:10 PT 10.5 Seconds (9.0-12.0) 10/02/18 05:10 INR 1.0 (0.9-1.1) 10/02/18 05:10 APTT 24.1 Seconds (21.0-31.0) 10/02/18 05:10 Electrocardiogram Date: 10/02/18 Findings: + NSR @ (74) Chest X-Ray Date: 10/02/18 Findings: + NAD
--- NOTE | 2018-10-02 16:41 | Hospitalist Progress Note ---
Date of Service October 02, 2018 Assessment & Plan (1) Trimalleolar fracture of right ankle: lost her balance while watering the plants landed on her rt side Xray of foot shows Trimalleolar Fx of Rt ankle ortho consulted , appreciate input scheduled for surgery tomorrow pt has minimum risk< 1 % for sydnee and post operative complication -cardiac arrythmia, decompensation should proceed for surgery in AM (2) Urinary retention with incomplete bladder emptying: hx of chronic intermittent urinary retention follows with Urology Dr Sanchez acute urinary retention with suprapubic discomfort this afternoon with large post void residual urine ordered for wolfe cath check urine culture -hx of recurrent UTI [facility] urology consulted FULL CODE DISPOSITION : pt is scheduled for Orthopedic surgery of rt ankle fracture in Am post op care /PT/Ot will be per Ortho recommendatdion depending pts post op recovery determination could be made for discharge to either home with home PT vs Rehab Subjective pain in rt foot tolerable scheduled for rt ankle surgery tomorrow developed acute urinary retention , post void urine > 500 ml ordered for Wolfe no fever or chills , no SOB or cough Physical Exam Physical Exam: GENERAL: No sign of distress, HEENT: Sclera nonicteric, pink-purple bilateral equal reactive to light extraocular muscle intact Normal oral mucosa, neck: No JVD, no thyromegaly, trachea midline Lungs: Clear to auscultate, no wheeze or rales Cardiovascular: Regular S1 and S2, no murmur or gallop, no JVD, no lower extremity edema Abdomen: Soft, nontender, bowel sounds active, no hepatosplenomegaly Extremities: rt lower ext in splint /immobilizer Neuro: No focal neurological deficit, no dysarthria, no facial droop Psych: Alert awake oriented x3: Euthymic Skin: No rash LYMPH NODES: No cervical lymphadenopathy Results & Data Vital Signs (Past 12 Hours) Vital Signs Temp Pulse Pulse Resp BP Pulse Ox 10/02/18 15:26 36.9 C 86 16 117/63 96 10/02/18 07:45 36.7 C 76 16 132/68 98 (1) Trimalleolar fracture of right ankle Encounter type: initial encounter Fracture type: closed Qualified Code(s): S82.851A - Displaced trimalleolar fracture of right lower leg, initial encounter for closed fracture
[2018-10-02 19:42] LABS: Appearance Urine Clear (Clear); Bilirubin Urine Negative (Negative); Blood Urine Negative (Negative); Color Urine Yellow; Glucose Urine UA Negative (Negative); Ketones Urine Negative (Negative); Leukocyte Esterase Urine Negative (Negative); Nitrite Urine Negative (Negative); Protein Urine Negative (Negative); Specific Gravity Urine 1.016 (1.000-1.030); Urobilinogen Urine Negative (Negative)
[2018-10-03] MEDS: HYDROmorphone INJ 0.5 MG/0.5 ML SYR IV PRN (06:23)
[2018-10-03] MEDS ORDERED: ROPIVACAINE 0.5% 5 MG/ML 30 ML VIAL ONE (07:36)
[2018-10-03] MEDS ORDERED: LIDOCAINE HCL 2% 2 ML VIAL/AMP(20MG/ML) INFIL ONE (07:38)
[2018-10-03] MEDS ORDERED: ONDANSETRON INJ 2 MG/ML 2 ML VIAL ONE (07:38)
[2018-10-03] MEDS ORDERED: GLYCOPYRROLATE 0.2 MG/ML VIAL ONE (07:38)
[2018-10-03] MEDS ORDERED: ROCURONIUM BROMIDE 10 MG/ML 5 ML VIAL ONE (07:38)
[2018-10-03] MEDS ORDERED: NEOSTIGMINE METHYLSULFATE 5 MG/5 ML SYR ONE (07:38)
[2018-10-03] MEDS ORDERED: fentaNYL citrate 100 MCG/2 ML VIAL ONE ×2 (07:38→09:27)
[2018-10-03] MEDS ORDERED: PROPOFOL IV EMULSION 10 MG/ML 20 ML VIAL IV ONE (07:38)
[2018-10-03] MEDS ORDERED: MIDAZOLAM HCL 1 MG/ML 2ML VIAL ONE (07:38)
[2018-10-03] MEDS ORDERED: ONDANSETRON INJ 2 MG/ML 2 ML VIAL IV PRN (08:01)
[2018-10-03] MEDS ORDERED: fentaNYL citrate 100 MCG/2 ML VIAL IV PRN (08:01)
[2018-10-03] MEDS ORDERED: ATROPINE SULFATE 0.1 MG/ML 10ML SYR IV PRN (08:01)
[2018-10-03] MEDS ORDERED: ePHEDrine sulfate 50 MG/ML AMP IV PRN (08:01)
[2018-10-03] MEDS ORDERED: BACITRACIN INJ 50,000 UNIT VIAL ONE (08:13)
--- NOTE | 2018-10-03 08:52 | History & Physical Bridge Note ---
Date of Service October 03, 2018 History & Physical Bridge Note I have examined the patient, reviewed the History & Physical and in the interval since the performance of the History & Physical I have noted the following changes of clinical significance: no changes noted
[2018-10-03] MEDS ORDERED: CEFAZOLIN 2,000 MG/15 ML IV PUSH IV ONE (08:53)
[2018-10-03] MEDS ORDERED: CEFAZOLIN 2000MG 2,000 MG/15 ML SYR IV ONE (08:56)
--- NOTE | 2018-10-03 11:30 | Fluoroscopy Report ---
FL ankle RT min 3V RTN HISTORY: 73 years-old Female RT ORIF TRIMALLEOLAR FX acute fracture of the right ankle COMPARISON: None available TECHNIQUE: 2 spot fluoroscopic images of the right ankle were obtained utilizing 71.4 seconds fluoros copy time FINDINGS: Lateral plate and screw fusion of a lateral malleolar fracture. There are 2 cannulated screws fixatin g a medial malleolar fracture with 2 additional screws fixating a posterior malleolar fracture. There is satisfactory alignment. Expected postoperative soft tissue swelling and deep tissue air. Degenera tive spurring about the hindfoot. IMPRESSION: Fluoroscopic assistance as above. Please see operative report for further details. The above report was generated using voice recognition software. It may contain grammatical, syntax o r spelling errors. Electronically signed by: Juancho Marti M.D. 10/03/2018 11:29 AM
--- NOTE | 2018-10-03 11:36 | Post Operative Brief Note ---
Immediate Post Op Note v1 Date of Surgery October 03, 2018 Pre & Post Diagnosis Operation Date: 10/03/18 08:25 Pre-Op Diagnosis: Right displaced trimalleolar ankle fracture Post-Op Diagnosis: Right displaced trimalleolar ankle fracture Procedure Operation Date: 10/03/18 08:25 Actual Procedures p Right Open Reduction Internal Fixation displaced trimalleolar ankle fracture(Right) - Matt Tejada DO Surgeon Matt Tejada DO Per Diem Interpreter None Estimated Blood Loss 10 Findings Consistent with Post-Op Diagnosis Specimens None Drains Mace Catheter Anesthesia Type General Regional Complications none Disposition Accompanied Patient To Recovery: No Disposition: Recovery Room
--- NOTE | 2018-10-03 12:21 | XRay Report ---
XR ankle RT min 3V routine HISTORY: 73 years-old Female Postop postoperative exam. Acute trimalleolar fracture of the right ank le COMPARISON: Fluoroscopic images of the right ankle of same day TECHNIQUE: 3 views of the right ankle FINDINGS: Lateral plate and screw fusion of a lateral malleolar fracture. Findings bony detail is obscured by o verlying casting material. There are 2 cannulated screws fixating a medial malleolar fracture with 2 additional screws fixating a posterior malleolar fracture. There is satisfactory alignment. Expected postoperative soft tissue swelling and deep tissue air. Degenerative spurring about the hindfoot. IMPRESSION: Satisfactory alignment of the trimalleolar right ankle fracture status post open reductio n and internal fixation. The above report was generated using voice recognition software. It may contain grammatical, syntax o r spelling errors. Electronically signed by: Juancho Marti M.D. 10/03/2018 12:19 PM
--- NOTE | 2018-10-03 12:29 | Anesthesiology Progress Note ---
Date of Service October 03, 2018 Anesthesia Post Procedure Vital Signs Vital Signs: Temp Pulse Pulse Pulse Resp BP Pulse Ox 10/03/18 12:20 87 14 154/69 H 92 10/03/18 12:10 97.7 F 86 15 154/71 H 93 10/03/18 12:00 86 12 153/70 H 98 10/03/18 11:50 87 18 157/69 H 96 10/03/18 11:42 97.7 F 86 13 143/67 H 95 10/03/18 08:14 99.7 F H 89 18 142/68 H 90 10/03/18 07:20 98.6 F 96 H 19 138/72 90 10/02/18 23:59 98.6 F 95 H 16 121/62 92 10/02/18 15:26 98.4 F 86 16 117/63 96 Pain Intensity Right Ankle: Pain Intensity: 0 Transfer of Care Handoff Completed per policy Notes Mental Status: alert / awake / arousable and participated in evaluation Patient Amnestic to Procedure: Yes Nausea / Vomiting: adequately controlled Pain: adequately controlled Airway Patency, RR, SpO2: stable & adequate BP & HR: stable & adequate Hydration State: stable & adequate Anesthetic Complications: no major complications apparent and Pt Satisfied with anesthetic care
[2018-10-03] MEDS: FLUOXETINE HCL 20 MG CAP PO SCH (12:57)
[2018-10-03] MEDS: PANTOprazole 40 MG TAB PO SCH ×2 (12:57→19:47)
[2018-10-03] MEDS: MULTIVITAMIN TAB PO SCH (12:58)
[2018-10-03] MEDS: CALCIUM 600MG + VIT D 400 IU TAB PO SCH (12:58)
--- NOTE | 2018-10-03 13:47 | Urology Consultation ---
Date of Consultation October 03, 2018 Assessment & Plan (1) Urinary retention with incomplete bladder emptying: I think she has chronic urinary retention of 1+ year duration. I think this is a neurologic problem as there is no evidence for obstruction on exam. There is no cure for this. Her options are chronic wolfe or clean intermittent self catheterization 3 times daily or struggle to void on her own. She prefers to continue to void on her own. She understands she has incomplete emptying which does elevated her risk for uti and makes her utis harder to treat. She has had utis but never pyelonephritis or bacteremia. I suggest remove her wolfe at discharge and given her a single tablet of cipro 500mg to help her clear any accumulated bacteriuria from the wolfe. I think she will have better success voiding in the upright position on a bedside commode or toilet at home. I think trying to void on a bedpan flat on her back exacerbated her chronic voiding problem. I dont need to see her in follow up unless she has worsened problems Present on Admission?: Yes History of Present Illness Reason for Consultation: urinary retention Requesting Physician: Dr Mark Attending Physician: Harmony Mark MD History of Present Illness I am asked by Dr Mark to evaluate and treat patient for urinary retention. She fell and broke her right ankle. She had surgery for it this am. She was found yesterday afternoon to be retaining 600mL. She was trying to void into a bedpan and found it to be very difficult. Over the last 1 year or more she has had a very weak stream. She voids with a very slow stream. She needs to push and press on her suprapubic area and bend over to enhance urine flow. It has not changed over this past year. Her bowels are fair. She has had a hysterectomy for benign reasons. She thinks she had a bladder tack at same time. She has had at least 2 spine surgeries, one cervical one lumbar. She has a wolfe catheter now. Allergies Allergy/AdvReac Type Severity Reaction Status Date / Time No Known Allergies Allergy Mild Verified 10/03/18 08:13 Home Medications Home Medications Medication Instructions Recorded Confirmed Type Calcium 600 + D(3) 2 tab PO QAM 05/21/18 06/17/18 History estradiol 0.5 mg PO QAM 05/21/18 06/17/18 History fluoxetine 40 mg PO QAM 05/21/18 06/17/18 History multivitamin 1 tab PO QAM 05/21/18 06/17/18 History pantoprazole 40 mg PO QAM 05/21/18 06/17/18 History vitamin [id number] acid 10/02/18 History Patient History Medical History Carpal tunnel syndrome on both sides Anxiety Depression Diverticular disease Emphysema lung PER CXR GERD (gastroesophageal reflux disease) CONTROLLED Hiatal hernia Hyperlipidemia NO MEDS Obesity Osteoarthritis Peripheral neuropathy HANDS AND FEET/LEGS Surgical History S/P appy Fusion of spine LUMBAR H/O exploratory laparotomy 2/2 ADHESIONS History of section X3 History of cholecystectomy History of hysterectomy History of neck surgery FUSION History of repair of rotator cuff LEFT Family History Sister Family history of diabetes mellitus Sister Family history of diabetes mellitus Brother Family history of diabetes mellitus Social History Preferred Language: American Communication Ability: Effective Loom Fixer Required: No Beliefs That Will Affect Care: None marital status: Current Living Situation: Spouse Feels Safe at Home: Yes Safety Concerns: Feels Safe At This Time Smoking Status: Never smoker Second Hand Exposure: No (ONLY A CHILD) Hx Alcohol Use: No Hx Substance Use: No Review of Systems Review of Systems: PMH/PSH- hysterectomy, x 3, cervical spine surgery, lumbar spine surgery, carpal tunnel. Allergy none soc- retired, no tobacco ROS- no chest pain no shortness of breath, no rash, no calf pain, bowels fine, no seizures, no wheezing appetite fine no fevers, no weakness, does not usually fall. Physical Exam Constitutional: + morbidly obese, well groomed, cooperative and comfortable; no acute distress Respiratory: normal respiratory effort and able to speak in complete sentences; no cough Cardiovascular: Rate/Rhythm: regular rate Skin: no rashes, warm and dry right calf and foot in cast Psychiatric: A+Ox3, euthymic affect Orientation: oriented x 3 Apperance: appropriately groomed Genitourinary: normal external appearance and bladder normal to inspection; no CVA tenderness, no external lesions, no external erythema and no urethral lesion wolfe in place, I secured it to the leg strap, urethral meatus normal, urine is yellow, the urethra is palpably normal, the bladder base is normal, cervix surgically absent, stage 2 support, mild UVj mobility with cough. no stool palpable posteriorly Results & Data Vital Signs (Past 12 Hours) Vital Signs Temp Pulse Pulse Pulse Resp BP Pulse Ox 10/03/18 13:21 36.8 C 83 18 112/61 94 10/03/18 12:59 36.8 C 84 15 151/78 H 94 10/03/18 12:20 87 14 154/69 H 92 10/03/18 12:10 36.5 C 86 15 154/71 H 93 10/03/18 12:00 86 12 153/70 H 98 10/03/18 11:50 87 18 157/69 H 96 10/03/18 11:42 36.5 C 86 13 143/67 H 95 10/03/18 08:14 37.6 C H 89 18 142/68 H 90 10/03/18 07:20 37.0 C 96 H 19 138/72 90
--- NOTE | 2018-10-03 14:03 | Operative Report ---
DATE OF OPERATION: 10/03/2018 PREOPERATIVE DIAGNOSIS: Right displaced trimalleolar ankle fracture. POSTOPERATIVE DIAGNOSIS: Right displaced trimalleolar ankle fracture. PROCEDURE: Open reduction and internal fixation of right displaced trimalleolar ankle fracture. SURGEON: Matt Tejada DO. SMOKING PIPES CLEANER: None. ANESTHESIA: General, regional. SPECIMENS: None. DRAINS: None. COMPLICATIONS: None. BLOOD LOSS: 10 mL PERTINENT HISTORY: This is a 73-year-old woman who had sustained a slip, twist and fall on her right ankle while at home 2 days ago, had immediate pain, swelling and deformity. She was initially seen at [facility] and then transferred to [facility] for further care and management. The patient had no neck or head trauma. Painful displaced ankle fracture was reduced and splinted in a well-padded bulky splint; she was then scheduled for surgery as indicated. All potential risks, benefits, complications, alternatives, rehab potential for incomplete relief of symptoms, need for further surgery, DVT, PE, , persistent pain, swelling, scarring, weakness, neurovascular injury, wound complications, hardware failure, nonunion, malunion and bone fracture were discussed with the patient. The patient decided to proceed with the procedure as indicated. DESCRIPTION OF PROCEDURE: The patient had a popliteal block administered in the preop holding area, taken to the operative suite, placed supine on the operating room table. After reviewing consent and identification of proper operative site, the patient was anesthetized, LMA was placed. Tourniquet was placed high on the right thigh over cast padding. Right lower extremity was then sterilely prepped and draped in usual fashion, elevated and exsanguinated with an Esmarch bandage, tourniquet inflated to 350 mmHg. Next, a 15 blade scalpel was used to make an incision over the lateral malleolus extending proximally. The incision was deepened through subcutaneous tissue. Meticulous hemostasis was achieved with electrocautery. The torn periosteum and fracture were noted. The peroneal tendons were retracted posteriorly and a branch of the deep peroneal nerve was retracted anteriorly. The fracture site was then carefully irrigated and debrided with sterile saline and a dental pick. Next, the fracture was then reduced using 2 bone reduction forceps with gentle traction to the ankle. Next, two 3.5 mm lag screws were placed from anterior to posterior to stabilize and compress the fracture into near anatomic position. This was then followed by using an 8-hole one-third tubular Synthes locking stainless steel plate, which was then contoured to fit the lateral aspect of the fibula and then a nonlocking screw was first placed in the central portion of the plate to compress and stabilize the plate onto the bone and then multiple locking screws were then used to stabilize the fracture definitively. This was all performed under live fluoroscopic assistance. Next, attention was then directed toward the medial malleolus. A curvilinear incision was made with a 15 blade scalpel centered over the medial malleolus. Incision was deepened through the subcutaneous tissue. Meticulous hemostasis was achieved with electrocautery. Full thickness skin flaps were developed. Saphenous vein was identified, freed, retracted, and protected with a Ryan rake followed by identification of the torn periosteum and displaced fracture, which was then carefully debrided with a dental pick and irrigated with sterile normal saline. Next, the fracture was then reduced and stabilized with two 4.0 cannulated screws placed under live fluoroscopic assistance. Next, the large posterior fragment was then visualized using a lateral fluoroscopic view. Under direct visualization with fluoroscopy and palpation., 2 anterior to posterior percutaneous 4.0 cannulated screws were placed in the anterior aspect of the tibia to the posterior aspect stabilizing and compressing the fracture into near anatomic position under live fluoroscopic assistance. Next, all incisions were then copiously irrigated with sterile normal saline until clear. The medial incision was closed using buried interrupted 3-0 Vicryl and 4-0 nylon. The lateral incision was closed using 2-0 Vicryl, 3-0 Vicryl in the dermis and 4-0 nylon in the skin. The anterior incisions were closed using 4-0 nylon. Final radiographs were obtained in the AP and lateral projections followed by application of a sterile compressive dressing and a bulky Richard Rhodes plaster splint with the foot held in neutral dorsiflexion. Toes are pink and warm. Tourniquet was released. The patient was awakened and taken to recovery in stable condition. I attest to the content of the Intraoperative Record and any orders documented therein. Any exception s are noted below.
[2018-10-03] MEDS: SODIUM CHLORIDE 0.9% 1000ML 1,000 ML IV SCH (15:09)
[2018-10-03] MEDS ORDERED: Nursing to Pharmacy Communication ONE (15:12)
--- NOTE | 2018-10-03 18:04 | Hospitalist Progress Note ---
Date of Service October 03, 2018 Assessment & Plan (1) Trimalleolar fracture of right ankle: lost her balance while watering the plants landed on her rt side Xray of foot shows Trimalleolar Fx of Rt ankle ortho consulted , appreciate input Status post ORIF of right ankle today, postoperative day 0 Recovering well continue pain control (2) Urinary retention with incomplete bladder emptying: hx of chronic intermittent urinary retention Urology consulted acute urinary retention with suprapubic discomfort this afternoon with large post void residual urine ordered for wolfe cath check urine culture -hx of recurrent UTI FULL CODE DISPOSITION : post op care /PT/Ot will be per Ortho recommendatdion depending pts post op recovery determination could be made for discharge to either home with home PT vs Rehab Subjective Status post right ankle surgery today Doing well postop, comfortable does not have any pain or discomfort, still have nerve block Physical Exam Physical Exam: GENERAL: No sign of distress, HEENT: Sclera nonicteric, pink-purple bilateral equal reactive to light extraoc ular muscle intact Normal oral mucosa, neck: No JVD, no thyromegaly, trachea midline Lungs: Clear to auscultate, no wheeze or rales Cardiovascular: Regular S1 and S2, no murmur or gallop, no JVD, no lower extremity edema Abdomen: Soft, nontender, bowel sounds active, no hepatosplenomegaly Extremities: Right ankle status post surgery, on cast Neuro: No focal neurological deficit, no dysarthria, no facial droop Psych: Alert awake oriented x3: Euthymic Skin: No rash LYMPH NODES: No cervical lymphadenopathy Results & Data Vital Signs (Past 12 Hours) Vital Signs Temp Pulse Pulse Pulse Resp BP Pulse Ox 10/03/18 15:42 36.7 C 80 14 126/71 94 10/03/18 14:44 36.6 C 80 18 129/69 92 10/03/18 13:48 80 15 121/67 93 10/03/18 13:21 36.8 C 83 18 112/61 94 10/03/18 12:59 36.8 C 84 15 151/78 H 94 10/03/18 12:20 87 14 154/69 H 92 10/03/18 12:10 36.5 C 86 15 154/71 H 93 10/03/18 12:00 86 12 153/70 H 98 10/03/18 11:50 87 18 157/69 H 96 10/03/18 11:42 36.5 C 86 13 143/67 H 95 10/03/18 08:14 37.6 C H 89 18 142/68 H 90 10/03/18 07:20 37.0 C 96 H 19 138/72 90 (1) Trimalleolar fracture of right ankle Encounter type: initial encounter Fracture type: closed Qualified Code(s): S82.851A - Displaced trimalleolar fracture of right lower leg, initial encounter for closed fracture
[2018-10-04] MEDS: SODIUM CHLORIDE 0.9% 1000ML 1,000 ML IV SCH (01:00)
[2018-10-04] MEDS: OXYCODONE HCL IR 5 MG TAB (IMMEDIATE RELEASE) PO PRN ×4 (04:39→20:33)
[2018-10-04] MEDS: HYDROmorphone INJ 0.5 MG/0.5 ML SYR IV PRN ×2 (05:24→21:41)
--- NOTE | 2018-10-04 07:57 | Anesthesiology Progress Note ---
Date of Service October 04, 2018 Anesthesia Post Procedure Vital Signs Vital Signs: Temp Pulse Pulse Pulse Resp BP Pulse Ox 10/04/18 03:30 36.7 C 85 16 132/68 90 10/03/18 23:40 37.0 C 80 14 123/65 96 10/03/18 20:05 37.3 C 78 16 115/66 91 10/03/18 15:42 36.7 C 80 14 126/71 94 10/03/18 14:44 36.6 C 80 18 129/69 92 10/03/18 13:48 80 15 121/67 93 10/03/18 13:21 36.8 C 83 18 112/61 94 10/03/18 12:59 36.8 C 84 15 151/78 H 94 10/03/18 12:20 87 14 154/69 H 92 10/03/18 12:10 36.5 C 86 15 154/71 H 93 10/03/18 12:00 86 12 153/70 H 98 10/03/18 11:50 87 18 157/69 H 96 10/03/18 11:42 36.5 C 86 13 143/67 H 95 10/03/18 08:14 37.6 C H 89 18 142/68 H 90 Pain Intensity Right Ankle: Pain Intensity: 0 Notes Mental Status: alert / awake / arousable and participated in evaluation Patient Amnestic to Procedure: Yes Nausea / Vomiting: adequately controlled Pain: adequately controlled Airway Patency, RR, SpO2: stable & adequate BP & HR: stable & adequate Hydration State: stable & adequate Anesthetic Complications: no major complications apparent and Pt Satisfied with anesthetic care
[2018-10-04] MEDS: FLUOXETINE HCL 20 MG CAP PO SCH (08:20)
[2018-10-04] MEDS: CALCIUM 600MG + VIT D 400 IU TAB PO SCH (08:22)
[2018-10-04] MEDS: MULTIVITAMIN TAB PO SCH (08:22)
--- NOTE | 2018-10-04 08:58 | Orthopedic Progress Note ---
Date of Service October 04, 2018 Assessment & Plan (1) Trimalleolar fracture of right ankle: POD 1 s/p ORIF Right ankle fx Urinary retention PT/OT ; NWB RLE Continue current pain management DVT proph - ASA qd,SCD's Plan for dc today per Ortho if progressing with PT. Will dc wolfe and IV. Subjective POD 1 s/p ORIF Right Ankle Fx Pt sitting up in chair at bedside. RLE elevated. Did not sleep well last night. States her block wore off around 5 am. Currently, her pain is controlled with PO pain meds. No complaints at this time. Physical Exam Physical Exam: Splint C/D/I. Toes are mobile. Decreased sensation but has h/o neuropathy. Cap refill less than 2 seconds. Results & Data Vital Signs (Past 12 Hours) Vital Signs Temp Pulse Resp BP Pulse Ox 10/04/18 07:57 36.9 C 84 18 134/70 90 10/04/18 03:30 36.7 C 85 16 132/68 90 10/03/18 23:40 37.0 C 80 14 123/65 96 (1) Trimalleolar fracture of right ankle Encounter type: initial encounter Fracture type: closed Qualified Code(s): S82.851A - Displaced trimalleolar fracture of right lower leg, initial encounter for closed fracture
[2018-10-04] MEDS: PANTOprazole 40 MG TAB PO SCH (09:16)
[2018-10-04] MEDS ORDERED: CIPROFLOXACIN 500 MG TAB PO STA (09:23)
[2018-10-04] MEDS ORDERED: BISACODYL 5 MG TABEC PO PRN (16:57)
[2018-10-04] MEDS ORDERED: HYDROmorphone INJ 0.5 MG/0.5 ML SYR IV STA (16:57)
--- NOTE | 2018-10-04 17:07 | Hospitalist Progress Note ---
Date of Service October 04, 2018 Assessment & Plan (1) Trimalleolar fracture of right ankle: lost her balance while watering the plants landed on her rt side Xray of foot shows Trimalleolar Fx of Rt ankle ortho consulted , appreciate input Status post ORIF of right ankle today, postoperative day #1 Plan was to discharge home today with home health home PT Right foot pain remains severe, not amenable with p.o. pain meds Will observe patient in orthopedics for for pain control (2) Urinary retention with incomplete bladder emptying: hx of chronic intermittent urinary retention Urology consulted acute urinary retention with suprapubic discomfort this afternoon with large post void residual urine Symptom has resolved, Mace discontinued able to void spontaneously Urine culture no growth FULL CODE DISPOSITION : Hold discharge home with home health home PT today Remains in hospital for continued pain control s/p right ankle surgery. Subjective POD 1 s/p ORIF Right Ankle Fx Patient was evaluated by orthopedics this morning, Found to be stable to be discharged home nonweightbearing on right lower extremity Outpatient follow-up with orthopedics Prior to discharge to home this afternoon, patient developed severe excruciating right lower extremity pain Not amenable to p.o. Roxicodone Ordered IV Dilaudid We will cancel discharge patient will be remain inpatient in orthopedics floor for adequate pain control Physical Exam Constitutional: + acute distress (Due to right foot pain) Eyes: PERRL, conjunctivae normal, anicteric sclerae ENMT: external ear and nose normal, oropharynx normal Neck: trachea midline, no thyromegaly Respiratory: normal respiratory effort, lungs clear to auscultation Cardiovascular: RRR, no murmur, no edema Gastrointestinal (Abdomen): normal bowel sounds, soft, nontender, no hepatosplenomegaly Musculoskeletal: Status post right ankle surgery, right foot in cast Neurologic: PERRL, EOMI, accommodation nl, no face palsy, no dysarthria Psychiatric: Orientation: alert and oriented x 3 Mood: + anxious mood Results & Data Vital Signs (Past 12 Hours) Vital Signs Temp Pulse Resp BP Pulse Ox 10/04/18 15:44 36.7 C 90 16 131/66 95 10/04/18 07:57 36.9 C 84 18 134/70 90 (1) Trimalleolar fracture of right ankle Encounter type: initial encounter Fracture type: closed Qualified Code(s): S82.851A - Displaced trimalleolar fracture of right lower leg, initial encounter for closed fracture
[2018-10-04] MEDS ORDERED: LORazepam 0.5 MG TAB PO PRN (19:24)
[2018-10-04] MEDS: DOCUSATE SODIUM 100 MG CAP PO SCH (20:40)
[2018-10-05] MEDS: OXYCODONE HCL IR 5 MG TAB (IMMEDIATE RELEASE) PO PRN ×5 (01:07→23:39)
[2018-10-05] MEDS: MULTIVITAMIN TAB PO SCH (08:37)
[2018-10-05] MEDS: PANTOprazole 40 MG TAB PO SCH (08:37)
[2018-10-05] MEDS: CALCIUM 600MG + VIT D 400 IU TAB PO SCH (08:38)
[2018-10-05] MEDS: FLUOXETINE HCL 20 MG CAP PO SCH (08:38)
[2018-10-05] MEDS: POLYETHYLENE (MIRALAX) 17 GM PACK PO SCH (08:42)
[2018-10-05] MEDS: DOCUSATE SODIUM 100 MG CAP PO SCH ×2 (08:42→20:45)
--- NOTE | 2018-10-05 11:27 | Orthopedic Progress Note ---
Date of Service October 05, 2018 Assessment & Plan (1) Trimalleolar fracture of right ankle: POD 2 s/p Right Open Reduction Internal Fixation Trimalleolar Fracture Urinary retention PT/OT ; NWB RLE Continue current pain management DVT proph - ASA qd,SCD's Discussed elevating the RLE and icing to help with pain management. Orthopedically stable. If pain controlled, may discharge home. Follow up with Dr. Tejada's clinic in 2 weeks. Subjective Still having pain in the ankle. Had a better night's sleep last night compared to 2 nights ago. Physical Exam Physical Exam: Sitting on the chair at the bedside with her foot on a step stool. Constitutional: WD/WN, vitals as above Musculoskeletal: Right ankle: splint/clean/dry. Toes are mobile. Cap refill < 2 seconds. Sensation intact. Psychiatric: A+Ox3, euthymic affect Results & Data Vital Signs (Past 12 Hours) Vital Signs Pulse Ox 10/05/18 08:45 91 10/05/18 08:08 94 10/05/18 08:07 88 L 10/05/18 07:48 96 (1) Trimalleolar fracture of right ankle Encounter type: initial encounter Fracture type: closed Qualified Code(s): S82.851A - Displaced trimalleolar fracture of right lower leg, initial encounter for closed fracture
[2018-10-05] MEDS: HYDROmorphone INJ 0.5 MG/0.5 ML SYR IV PRN ×2 (12:27→20:48)
--- NOTE | 2018-10-05 17:40 | Hospitalist Progress Note ---
Date of Service October 05, 2018 Assessment & Plan (1) Intractable pain: She needs to have throbbing pain on right ankle postsurgical site, regarding IV pain meds Ordered for PRN Percocet Patient had extensive trimalleolar fracture of right ankle status post ORIF Continue pain management-needs hospital stay while requiring IV meds Order for bowel regimen to prevent narcotic induced constipation Plan is to gradual transition to p.o. pain meds, with good control of postop pain prior to discharge home (2) Trimalleolar fracture of right ankle: Due to mechanical fall, lost her balance while watering plants in garden landed on her rt side Xray of foot shows Trimalleolar Fx of Rt ankle ortho consulted , appreciate input Status post ORIF of right ankle today, postoperative day # 2 Right foot pain remains severe, not amenable with p.o. pain meds Continue pain control as outlined above Plan to discharge home with home health home PT when postop right ankle pain improves (3) Urinary retention with incomplete bladder emptying: Resolved, Mace catheter discontinued, patient has been able to void spontaneously hx of chronic intermittent urinary retention Outpatient follow-up with urology recommended Urine culture no growth FULL CODE DISPOSITION : Remains in hospital for continued pain control s/p right ankle surgery. Plan is to discharge home with home health home PT in next 24 to 48 hours if pain rate remains well controlled with p.o. meds Subjective Left ankle postsurgical pain has improved with IV pain medications, was able to sleep last night, Still having 8 out of 10 throbbing pain on the left ankle requiring IV pain meds Appreciate evaluation by orthopedics Patient will continue inpatient stay for pain control Physical Exam Constitutional: + acute distress (Due to right foot pain) Eyes: PERRL, conjunctivae normal, anicteric sclerae ENMT: external ear and nose normal, oropharynx normal Neck: trachea midline, no thyromegaly Respiratory: normal respiratory effort, lungs clear to auscultation Cardiovascular: RRR, no murmur, no edema Gastrointestinal (Abdomen): normal bowel sounds, soft, nontender, no hepatosplenomegaly Neurologic: PERRL, EOMI, accommodation nl, no face palsy, no dysarthria Psychiatric: Orientation: alert and oriented x 3 Mood: + anxious mood Results & Data Vital Signs (Past 12 Hours) Vital Signs Temp Pulse Resp BP Pulse Ox 10/05/18 15:29 36.8 C 83 20 124/68 94 10/05/18 08:45 91 10/05/18 08:08 94 10/05/18 08:07 88 L 10/05/18 07:48 96 (1) Trimalleolar fracture of right ankle Encounter type: initial encounter Fracture type: closed Qualified Code(s): S82.851A - Displaced trimalleolar fracture of right lower leg, initial encounter for closed fracture
[2018-10-06] MEDS: OXYCODONE HCL IR 5 MG TAB (IMMEDIATE RELEASE) PO PRN ×2 (05:05→12:48)
[2018-10-06] MEDS: HYDROmorphone INJ 0.5 MG/0.5 ML SYR IV PRN ×2 (06:05→15:12)
[2018-10-06] MEDS: PANTOprazole 40 MG TAB PO SCH (09:04)
[2018-10-06] MEDS: MULTIVITAMIN TAB PO SCH (09:04)
[2018-10-06] MEDS: CALCIUM 600MG + VIT D 400 IU TAB PO SCH (09:04)
[2018-10-06] MEDS: POLYETHYLENE (MIRALAX) 17 GM PACK PO SCH ×2 (09:05→20:34)
[2018-10-06] MEDS: FLUOXETINE HCL 20 MG CAP PO SCH (09:05)
[2018-10-06] MEDS: DOCUSATE SODIUM 100 MG CAP PO SCH ×2 (09:05→20:34)
[2018-10-06] MEDS ORDERED: LORazepam 0.5 MG TAB PO PRN (16:29)
[2018-10-06] MEDS ORDERED: MAGNESIUM HYDROXIDE SUSP 30 ML UDC PO ONE (16:39)
[2018-10-06] MEDS: ACETAMINOPHEN 1,000 MG/100 ML VIAL IV SCH (16:52)
[2018-10-06] MEDS ORDERED: HYDROmorphone INJ 0.5 MG/0.5 ML SYR IV PRN (17:15)
--- NOTE | 2018-10-06 17:15 | Hospitalist Progress Note ---
Date of Service October 06, 2018 Assessment & Plan (1) Intractable pain: Secondary to right ankle trimalleolar fracture status post ORIF We will continue to try to pain medication, transition to p.o. meds as tolerated Patient had extensive trimalleolar fracture of right ankle status post ORIF Patient required continued hospital stay for pain control requiring IV pain meds Order for bowel regimen to prevent narcotic induced constipation Ordered for scheduled IV Tylenol Plan is to gradual transition to p.o. pain meds, with good control of postop pain prior to discharge home (2) Trimalleolar fracture of right ankle: Due to mechanical fall, lost her balance while watering plants in garden landed on her rt side Xray of foot shows Trimalleolar Fx of Rt ankle ortho consulted , appreciate input Status post ORIF of right ankle today, postoperative day # 3 Right foot pain remains severe, not amenable with p.o. pain meds Continue pain control as outlined above Plan to discharge home with home health home PT when postop right ankle pain improves (3) Urinary retention with incomplete bladder emptying: Resolved, Mace catheter discontinued, patient has been able to void spontaneously hx of chronic intermittent urinary retention Outpatient follow-up with urology recommended Urine culture no growth FULL CODE DISPOSITION : Remains in hospital for continued pain control s/p right ankle surgery. Plan is to discharge home with home health home PT in next 24 to 48 hours if pain rate remains well controlled with p.o. meds Subjective Patient requiring IV Dilaudid intermittently for pain relief Oral p.o. pain meds has not been effective No fever or chills Able to ambulate with a walker nonweightbearing on right lower extremity We will start on scheduled dose of IV Tylenol Try to space off IV Dilaudid, utilize oral pain meds more Bowel regimen ordered to prevent narcotic induced constipation Physical Exam Constitutional: + acute distress (Due to right foot pain) Eyes: PERRL, conjunctivae normal, anicteric sclerae ENMT: external ear and nose normal, oropharynx normal Neck: trachea midline, no thyromegaly Respiratory: normal respiratory effort, lungs clear to auscultation Cardiovascular: RRR, no murmur, no edema Gastrointestinal (Abdomen): normal bowel sounds, soft, nontender, no hepatosplenomegaly Neurologic: PERRL, EOMI, accommodation nl, no face palsy, no dysarthria Psychiatric: Orientation: alert and oriented x 3 Mood: + anxious mood Results & Data Vital Signs (Past 12 Hours) Vital Signs Temp Pulse Resp BP BP Pulse Ox 10/06/18 14:52 37.0 C 83 18 151/64 H 95 10/06/18 09:08 95 10/06/18 07:16 36.7 C 77 16 113/64 96 (1) Trimalleolar fracture of right ankle Encounter type: initial encounter Fracture type: closed Qualified Code(s): S82.851A - Displaced trimalleolar fracture of right lower leg, initial encounter for closed fracture
[2018-10-07] MEDS: ACETAMINOPHEN 1,000 MG/100 ML VIAL IV SCH ×2 (01:08→08:45)
[2018-10-07] MEDS: DOCUSATE SODIUM 100 MG CAP PO SCH (08:45)
[2018-10-07] MEDS: CALCIUM 600MG + VIT D 400 IU TAB PO SCH (08:45)
[2018-10-07] MEDS: POLYETHYLENE (MIRALAX) 17 GM PACK PO SCH (08:45)
[2018-10-07] MEDS: FLUOXETINE HCL 20 MG CAP PO SCH (08:46)
[2018-10-07] MEDS: MULTIVITAMIN TAB PO SCH (08:46)
[2018-10-07] MEDS: PANTOprazole 40 MG TAB PO SCH (08:46)
--- NOTE | 2018-10-07 18:00 | Discharge Summary ---
Date of Service October 07, 2018 Admission HPI Per Admitting Provider DICTATED BY: Williams Hou MD DATE OF ADMISSION: 10/02/2018 CHIEF COMPLAINT: Status post fall and right ankle fracture. HISTORY OF PRESENT ILLNESS: This is a 73-year-old female with past medical history significant for depression, GERD, peripheral neuropathy, who presents with fall and right ankle fracture. The patient was watering her plants when suddenly she slipped and fell and she could not get up and she went to the [facility] ER. X-rays were done which showed right comminuted trimalleolar fracture and dislocation and it was reduced in the ER and the repeat x-ray showed highly comminuted trimalleolar fracture status post reduction improved tibio-talar alignment, but patient had significant pain and there was question of surgery and the patient wanted to get transferred to [facility] and she was transferred here. Complains of severe pain in the right ankle region status post wrapped around. Otherwise, she was doing okay. She can ambulate okay. Lives with her . Denies any headache. No blurred vision, no earache, no runny nose, no sore throat, no difficulty swallowing. No chest pain, no shortness of breath. No cough, no fever, no chills, no nausea, no abdominal pain. Normal bowel and bladder movements. No blood in the stools, no burning micturition. She recently had cervical spine surgery and that healed well. Denies any other complaints. Principal Diagnosis Right trimalleolar fracture/status post ORIF Discharge Exam Constitutional WD/WN, vitals as above + acute distress (Due to right foot pain), + morbidly obese, well groomed, cooperative and comfortable Eyes PERRL, conjunctivae normal, anicteric sclerae ENMT external ear and nose normal, oropharynx normal Mouth: no dentition abnormality Mallampati Class: II Neck trachea midline, no thyromegaly normal visual inspection Respiratory normal respiratory effort, lungs clear to auscultation normal respiratory effort and able to speak in complete sentences; no cough Auscultation: lungs clear to auscultation bilaterally Cardiovascular RRR, no murmur, no edema Rate/Rhythm: regular rate and regular rhythm Gastrointestinal (Abdomen) normal bowel sounds, soft, nontender, no hepatosplenomegaly Skin no rashes, warm and dry Neurologic PERRL, EOMI, accommodation nl, no face palsy, no dysarthria Psychiatric A+Ox3, euthymic affect Orientation: alert and oriented x 3 Apperance: appropriately groomed Mood: + anxious mood Genitourinary normal external appearance and bladder normal to inspection; no CVA tenderness, no external lesions, no external erythema and no urethral lesion Discharge Data Allergies Allergy/AdvReac Type Severity Reaction Status Date / Time No Known Allergies Allergy Mild Verified 10/03/18 08:13 Consultations 10/02/18 02:33 Consult Case Management - Discharge Planning Routine 10/02/18 08:00 Consult Orthopedic Surgery Routine 10/02/18 19:10 Consult Urology Routine Procedures Performed Operation Date: 10/03/18 08:25 Actual Procedures p Right Open Reduction Internal Fixation Trimalleolar Fracture(Right) - Matt Tejada, Ordered Studies 10/03/18 06:42 US - OR guided needle placemen Routine 10/03/18 08:25 FL ankle RT min 3V RTN Routine FL fluoroscopy <1hr Routine Hospital Course (1) Intractable pain: Secondary to right ankle trimalleolar fracture status post ORIF We will continue to try to pain medication, transition to p.o. meds as tolerated Patient had extensive trimalleolar fracture of right ankle status post ORIF Patient required continued hospital stay for pain control requiring IV pain meds Order for bowel regimen to prevent narcotic induced constipation Ordered for scheduled IV Tylenol This morning patient reports of pain much improved, Sitting up in chair, taking minimum pain meds, has not required any IV Dilaudid Feels comfortable to be discharged home (2) Trimalleolar fracture of right ankle: Due to mechanical fall, lost her balance while watering plants in garden landed on her rt side Xray of foot shows Trimalleolar Fx of Rt ankle ortho consulted , appreciate input Status post ORIF of right ankle today, postoperative day # 4 Right ankle pain improved markedly, will controlled with p.o. meds Stable to be discharged home today (3) Urinary retention with incomplete bladder emptying: Resolved, Mace catheter discontinued, patient has been able to void spontaneously hx of chronic intermittent urinary retention Outpatient follow-up with urology recommended Urine culture no growth FULL CODE DISPOSITION : Stable to discharge home with home health home PT today Patient will follow up by orthopedics as an outpatient in 1 to 2 weeks Total Time Total Time Spent Total Time Spent (In Minutes): Approximate 45 minutes Total Time Includes: Examination of the Patient, Discharge Planning and Medication Reconciliation Discharge Plan Discharge Items Patient Disposition: Home - Home Health Services Reason For Visit: RT ANKLE FRACTURE Discharge Diagnosis: Right Trimalleolar Ankle Fracture Discharge Goals: Decrease discomfort and Therapeutic intervention Activity: As commented below Activity Comment: Nonweight bearing on right lower extremity Weightbearing: Right non-weightbearing Weightbearing Comment: with use of walker Non-emergency contact: Surgeon Call non-emergency contact if: your pain is not controlled, your temperature is above 101.5, your wound has increased redness and your wound has increased drainage Follow-up/Referrals: Matt Tejada DO [Surgeon] - (Call for follow up in 2 weeks from surgery) Flaquito Ward DO [Primary Care Provider] - Diet: Regular Addtl Provider Instructions: TAKE STOOL SOFTENER -COLACE /MIRALAX WHILE TAKING PAIN MEDS -TO PREVENT CONSTIPATION Hospital follow-up with family physician in 1 week, please call office to schedule an appointment ACTIVITY RECOMMENDATIONS: Limitations: No weight bearing to affected limb at all times. SPECIAL CARE INSTRUCTIONS: * Some drainage onto the dressing is normal and is no cause for alarm. * Some swelling is natural especially after walking. * When resting, keep your foot elevated above the level of your heart. * Call [facility] if you notice: -Increased drainage -Fever over 101 degrees F -Severe constant pain * - TAKE ONE ASPIRIN DAILY FOR 30 DAYS. BANDAGE: * Leave bandage/cast in place unless otherwise directed. * Keep bandage/cast dry at all times. FOLLOW UP VISIT WITH DR. TEJADA If appointment is not already scheduled: Please call [facility] after you get home today to schedule a follow-up appointment for [address] Tejada at . Prescriptions: New aspirin 325 mg tablet 325 mg PO DAILY 30 Days Qty: 30 RF: 0 oxycodone 5 mg Tablet 5 mg PO Q4H PRN (Reason: pain) Qty: 30 RF: 0 Continued multivitamin Tablet 1 tab PO QAM RF: 0 fluoxetine 40 mg Capsule 40 mg PO QAM RF: 0 pantoprazole 40 mg Tablet,Delayed Release (Dr/Ec) 40 mg PO QAM RF: 0 estradiol 0.5 mg Tablet 0.5 mg PO QAM RF: 0 Calcium 600 + D(3) 600 mg calcium- 200 unit Capsule 2 tab PO QAM RF: 0 vitamin N91-vaupp acid RF: 0 Stand-Alone Forms: My [facility] [employer], [facility] [employer]/Other Patient Handouts: Surgery Prevent DVT After Discharge Orders: Discharge Order (Routine); Ordered 10/07/18 Ordered By: Harmony Makr Admission Data Admit Date/Time: 10/02/18 01:37 Attending Provider: Harmony Mark Admit Provider: Williams Hou Primary Care Provider: Flaquito Ward Other Providers: Williams Hou ; Matt Tejada Jennifer Service: Medical Other Interventions: Discharge Summary Assessment (RN) Last Done: 10/07/18 09:52 DC Date/Time DO NOT enter until pt leaves facility: 10/07/18 12:57
== END 2018-10-07 12:57 | disposition home health service (06) | DRG 494 ==
LOC: SUATTDRO 10-02 01:37 → 3N 10-02 01:37

== ENCOUNTER 2019-06-18 06:01 | Inpatient (IN) ==
[2019-06-06 15:36] LABS: Basophils # (auto) 0.02 K/uL (0-0.2); Basophils % (auto) 0.3 %; Eosinophils # (auto) 0.06 K/uL (0-0.5); Hematocrit (blood only) 40.3 % (37-47); Hemoglobin 13.2 g/dL (12.0-16.0); Immature Granulocytes # (auto) 0.01 K/uL (0.00-0.02); Immature Granulocytes % (auto) 0.2 %; Lymphocytes # (auto) 2.13 K/uL (1.2-3.4); Lymphocytes % (auto) 34.2 %; Mean Corpuscular Hemoglobin 30.9 pg (25-34); Mean Corpuscular Hgb Conc 32.8 g/dL (32-36); Mean Corpuscular Volume 94.4 fL (80-100); Mean Platelet Volume 10.1 fL (7.4-10.4); Monocytes # (auto) 0.53 K/uL (0.11-0.59); Monocytes % (auto) 8.5 %; Neutrophils # (auto) 3.47 K/uL (1.4-6.5); Neutrophils % (auto) 55.8 %; Platelet Count 296 K/uL (130-400); RDW Coefficient of Variation 12.9 % (11.5-14.5); RDW Standard Deviation 44.6 fL (36.4-46.3); Red Blood Count 4.27 M/uL (4.2-5.4); White Blood Count 6.22 K/uL (4.8-10.8)
[2019-06-06 15:40] LABS: Appearance Urine Clear (Clear); Bilirubin Urine Negative (Negative); Blood Urine Negative (Negative); Color Urine Yellow; Glucose Urine UA Negative (Negative); Ketones Urine Negative (Negative); Leukocyte Esterase Urine Negative (Negative); Nitrite Urine Negative (Negative); Protein Urine Negative (Negative); Specific Gravity Urine 1.013 (1.000-1.030); Urobilinogen Urine Negative (Negative); pH Urine 5.5 (4.5-7.5)
[2019-06-06 15:49] LABS: Partial Thromboplastin Time 26.6 Seconds (21.0-31.0); Prothrombin Time 10.5 Seconds (9.0-12.0)
[2019-06-06 16:07] LABS: BUN Creatinine Ratio 21.3 (10-20); Blood Urea Nitrogen 16 mg/dl (7-18); Calcium 8.9 mg/dl (8.5-10.1); Carbon Dioxide 27 mmol/L (21-32); Chloride 106 mmol/L (98-107); Est GFR (African American) 89.7; Est GFR (Non-African American) 77.4; Glucose 98 mg/dl (70-99); Potassium 3.9 mmol/L (3.5-5.1); Sodium 137 mmol/L (136-145)
--- NOTE | 2019-06-09 08:20 | Anesthesiology Consultation ---
Date of Service June 09, 2019 Assessment & Plan (1) Encounter for pre-operative examination: S/P right ORIF trimalleolar fracture: 10/03/18: LMA#4 + PNB at [facility] Chart Review Chart Review: Acceptable Risk for Surgery and Patient NOT seen in Pre Admission Testing History Surgery Operation Date: 06/18/19 09:25 Proposed Procedures p C6-C7 Anterior Cervical Discectomy and Fusion, C5-C6 Hardware Removal, Spinal Cord Monitoring - Cullen Amato DO Height/Weight Height: 5 ft 4 in Weight: 79.832 kg Allergies Allergy/AdvReac Type Severity Reaction Status Date / Time chlorhexidine Allergy Unknown SKIN FEELS Verified 05/26/19 13:36 LIKE IT'S BURNING Medications Home Medications Medication Instructions Recorded Confirmed Last Taken Calcium 600 + D(3) 1 tab PO QAM 05/21/18 05/26/19 10/01/18 estradiol 0.5 mg PO QAM 05/21/18 05/26/19 10/01/18 fluoxetine 40 mg PO QAM 05/21/18 05/26/19 10/01/18 multivitamin 1 tab PO QAM 05/21/18 05/26/19 10/01/18 pantoprazole 40 mg PO QAM 05/21/18 05/26/19 10/01/18 alpha lipoic acid 100 mg PO DAILY 05/26/19 05/26/19 Unknown cranberry 500 mg PO DAILY 05/26/19 05/26/19 Unknown cyanocobalamin (vitamin B-12) 500 mcg PO DAILY 05/26/19 05/26/19 Unknown [Vitamin B-12] Past Medical History Medical History Anxiety Diverticular disease Emphysema lung PER CXR GERD (gastroesophageal reflux disease) CONTROLLED Hiatal hernia History of panic attacks Hyperlipidemia NO MEDS Obesity Osteoarthritis Peripheral neuropathy HANDS AND FEET/LEGS Past Family History Family History Sister Family history of diabetes mellitus Sister Family history of diabetes mellitus Brother Family history of diabetes mellitus Other Cancer Myocardial infarction Denies family history of Ovarian cancer Breast cancer Colorectal cancer Past Surgical History Surgical History Fusion of spine LUMBAR H/O exploratory laparotomy 2/2 ADHESIONS History of appendectomy History of cardiac cath YRS AGO, SOB...NO FINDINGS History of section X3 History of cholecystectomy History of colonoscopy History of dilation and curettage History of hysterectomy R ANKLE History of neck surgery HX FUSION, X2 TOTAL NECK SURGERIES History of open reduction and internal fixation (ORIF) procedure History of repair of rotator cuff LEFT History of tubal ligation [place] teeth removed STOP BANG Total 2 Social History Smoking Status: Never smoker Do You Dip or Chew Tobacco: No Hx Alcohol Use: No Hx Substance Use: No substance use type: does not use Testing Laboratory Results 06/06/19 WBC 6.22 H/H 13.2/40.3 PLATELETS 296 SODIUM 137 POTASSIUM 3.9 CHLORIDE 106 CO2 27 BUN 16 CREATININE 0.75 GLUCOSE 98 PT 10.5 PTT 26.6 INR 1.0 UA negative TYPE AND SCREEN A+ Ab- Electrocardiogram Date: 10/02/18 Findings: + NSR @ (74) Chest X-Ray Date: 10/02/18 Stable 8 mm nodule within the right midlung zone. This favors a benign nodule given the long-term stability. No new focal lung consolidations. The heart is top normal in size. This remains unchanged. No evidence for pulmonary edema. No pleural effusions. No pneumothorax. Cervical spinal fusion hardware is again noted. IMPRESSION: No significant change compared to the prior study. No acute process.
--- NOTE | 2019-06-16 12:20 | History & Physical Report ---
Date of Service June 16, 2019 Assessment & Plan (1) Herniation of cervical intervertebral disc with radiculopathy: This time the patient demonstrates signs of severe cervical radiculopathy with progressive neurologic decline and weakness. Subsequently I am recommending urgent surgery in order to decompress her nerves and prevent further neurologic deficit and weakness and prevent long-term permanent sequelae from nerve damage. Risk benefits pros cons and returns were outlined in detail. Patient would undergo an anterior cervical discectomy and fusion at C6-C7, 5 6 hardware removal. Present on Admission?: Yes History of Present Illness Chief Complaint: Neck pain with left arm pain and weakness Primary Care Provider: Flaquito Ward This is a 74-year-old female well-known to me having undergone previous cervical surgery years ago. She now presents with several weeks of severe pain numbness and weakness radiating down the left arm. The right arm appears to be asymptomatic. She describes pain emanating down the upper arm below the elbow into the thumb. All activities exacerbate her symptoms. She notes marked deficits with ability to grasp with her left hand. She is dropping things. The pain awaken her from sleep. Allergies Allergy/AdvReac Type Severity Reaction Status Date / Time chlorhexidine Allergy Unknown SKIN FEELS Verified 05/26/19 13:36 LIKE IT'S BURNING Home Medications Home Medications Medication Instructions Recorded Confirmed Type Calcium 600 + D(3) 1 tab PO QAM 05/21/18 05/26/19 History estradiol 0.5 mg PO QAM 05/21/18 05/26/19 History fluoxetine 40 mg PO QAM 05/21/18 05/26/19 History multivitamin 1 tab PO QAM 05/21/18 05/26/19 History pantoprazole 40 mg PO QAM 05/21/18 05/26/19 History alpha lipoic acid 100 mg PO DAILY 05/26/19 05/26/19 History cranberry 500 mg PO DAILY 05/26/19 05/26/19 History cyanocobalamin (vitamin B-12) 500 mcg PO DAILY 05/26/19 05/26/19 History [Vitamin B-12] Past Med/Surg History Medical History (Updated 06/16/19 @ 12:18 by Cullen Amato DO) Anxiety Diverticular disease Emphysema lung PER CXR GERD (gastroesophageal reflux disease) CONTROLLED Hiatal hernia History of panic attacks Hyperlipidemia NO MEDS Obesity Osteoarthritis Peripheral neuropathy HANDS AND FEET/LEGS Surgical History (Updated 06/09/19 @ 08:19 by Indy Barber) Fusion of spine LUMBAR H/O exploratory laparotomy 2/2 ADHESIONS History of appendectomy History of cardiac cath YRS AGO: NO STENTS History of section X3 History of cholecystectomy History of colonoscopy History of dilation and curettage History of hysterectomy R ANKLE History of neck surgery HX FUSION, X2 TOTAL NECK SURGERIES History of open reduction and internal fixation (ORIF) procedure right ORIF trimalleolar fracture: 10/03/18: LMA#4 + PNB at [facility] History of repair of rotator cuff LEFT History of tubal ligation [place] teeth removed Family History Sister Family history of diabetes mellitus Sister Family history of diabetes mellitus Brother Family history of diabetes mellitus Other Cancer Myocardial infarction Denies family history of Ovarian cancer Breast cancer Colorectal cancer Social History Preferred Language: Israeli Communication Ability: Effective Clerk Of Court Required: No Beliefs That Will Affect Care: None marital status: Current Living Situation: Spouse Feels Safe at Home: Yes Smoking Status: Never smoker Second Hand Exposure: No (ONLY A CHILD) ; Hx Alcohol Use: No Hx Substance Use: No Physical Exam Physical Exam: On exam she is in obvious distress. She is a markedly positive Spurling's to the left. Negative to the right. She exhibits 3+/5 left hand intrinsics and tricep. Her biceps appear to be a 4+/5 on the left. The right side has good strength detailed testing. There is marked sensory deficits to the left cold and light touch compared to the right. Heart is regular rate and rhythm Lungs are clear to auscultation. Results & Data Diagnostic Findings MRI of the cervical spine demonstrates evidence of previous fusion at C4-5 and C5-6. There is evidence of disc protrusion and severe canal encroachment with with bilateral neuroforaminal disease left greater than right at C6-C7.
[~2019-06-18 06:01] MED LIST changes: +ACETAMINOPHEN 500 MG TAB PO SCH; -ATOR10TA82 PO; +CEFAZOLIN 2000MG 2,000 MG/15 ML SYR IV SCH; -CLTP PO; -COEN1CAP10 PO; -CYAN1SUB12 PO; +CeleBREX 200 MG CAP PO SCH; -EFFSR75 PO; -EST5 PO; -FISHOIL PO; +GABAPENTIN 300 MG CAP PO SCH; +LR 15ML/HR IV SCH; -MULT-506 PO; -PANT1TAB3 PO; -TUMMERIC PO; -VENL150C56 PO
[2019-06-18] MEDS ORDERED: ONDANSETRON INJ 2 MG/ML 2 ML VIAL ONE (07:05)
[2019-06-18] MEDS ORDERED: LIDOCAINE HCL 2% 2 ML VIAL/AMP(20MG/ML) INFIL ONE ×2 (07:05→09:30)
[2019-06-18] MEDS ORDERED: PROPOFOL IV EMULSION 10 MG/ML 20 ML VIAL IV ONE (07:05)
[2019-06-18] MEDS ORDERED: MIDAZOLAM HCL 1 MG/ML 2ML VIAL ONE (07:06)
[2019-06-18] MEDS ORDERED: fentaNYL citrate 100 MCG/2 ML VIAL ONE ×2 (07:06→08:40)
[2019-06-18] MEDS ORDERED: KETAMINE HCL INJ 50 MG/ML 10 ML VIAL ONE (07:06)
[2019-06-18] MEDS ORDERED: SUCCINYLCHOLINE 100MG/5ML SYR ONE (07:07)
[2019-06-18] MEDS ORDERED: BACITRACIN INJ 50,000 UNIT VIAL ONE (07:23)
--- NOTE | 2019-06-18 07:33 | History & Physical Bridge Note ---
Date of Service June 18, 2019 History & Physical Bridge Note I have examined the patient, reviewed the History & Physical and in the interval since the performance of the History & Physical I have noted the following changes of clinical significance: no changes noted
[2019-06-18] MEDS ORDERED: ONDANSETRON INJ 2 MG/ML 2 ML VIAL IV PRN ×2 (08:14→11:20)
[2019-06-18] MEDS ORDERED: METOCLOPRAMIDE HCL INJ 5 MG/ML 2 ML VIAL IV PRN ×2 (08:14→11:20)
[2019-06-18] MEDS ORDERED: ePHEDrine sulfate 50 MG/ML AMP IV PRN (08:14)
[2019-06-18] MEDS ORDERED: HYDROmorphone INJ 2 MG/ML SYR/VIAL IV PRN (08:14)
[2019-06-18] MEDS ORDERED: ATROPINE SULFATE 0.1 MG/ML 10ML SYR IV PRN (08:14)
[2019-06-18] MEDS ORDERED: PROMETHAZINE HCL 12.5 MG in SODIUM CHLORIDE 0.9% 50 ML IV PRN ×2 (08:14→11:20)
[2019-06-18] MEDS ORDERED: fentaNYL citrate 100 MCG/2 ML VIAL IV PRN (08:14)
[2019-06-18] MEDS ORDERED: ROCURONIUM BROMIDE 10 MG/ML 5 ML VIAL ONE (08:32)
[2019-06-18] MEDS ORDERED: FLOSEAL HEMOSTATIC MATRIX 10ML TOP ONE (09:15)
--- NOTE | 2019-06-18 09:35 | Operative Report ---
Post Operative Report Pre & Post Diagnosis Operation Date: 06/18/19 07:45 Pre-Op Diagnosis: Herniation of Cervical Intervertebral Disc with Radiculopathy Post-Op Diagnosis: Herniation of Cervical Intervertebral Disc with Radiculopathy I identified the patient and participated in the time-out.: Yes Procedure Operation Date: 06/18/19 07:45 Actual Procedures #1 anterior cervical discectomy with bilateral foraminotomies C6-C7. #2 anterior cervical arthrodesis C6-7. #3 placement of globus coalition plate and cage 8 mm in height filled with DBM. Surgeon Cullen Amato, Car Framer Comfort Cobos Estimated Blood Loss 50 Findings Consistent with Post-Op Diagnosis Specimens None Indications This is a 74-year-old female known to me that is presented with marked decline in status over the past several weeks involving the neck and bilateral upper extremities. She is noticing increased pain and weakness particularly in the grasp and triceps of the bilateral hands she feels that the right is worse than the left. Description of Procedure Patient was met with preop the case discussed depression addressed with number patient was taken back to the operative suite underwent an patient placed in supine position Delmar table head Pavon janitor head. All bony prominences well-padded eyes inspected to ensure no external pressure placed upon the. This point the anterior cervical spine was prepped and draped in normal sterile fashion. The assistance of fluoroscopy identified the C6-7 disc space and a transverse incision was placed along the right anterior aspect of the cervical spine overlying his region. Sharp dissection with assistance of bipolar electrocautery was performed to and exposing the C6-7 disc space. Then performed a complete discectomy out to the uncovertebral joints bilaterally. This included removal of all posterior annular fibers longitudinal ligament bilateral foraminotomies performed. Endplates were then burred to subcortical bleeding bone and an 8 mm coalition plate and cage filled with DBM was tapped in position and screwed into place. The incision was then copiously irrigated explored to ensure no damage to surrounding structures remaining bleeding. I did have to clip superficial vein emanating from scar tissue from her previous surgery. 10 round DOLLY drain was inserted. The incision was then closed with 2 Vicryl in a fashion of 4 Monocryl for final skin closure. Steri-Strip sterile dressing was placed. Patient will continue PACU stable addition. Please note Comfort Cobos was present at the entire procedure involved the patient positioning complex portions of the surgery and final skin closure. Lastly spinal cord monitoring was utilized that the procedure no changes noted. I attest to the content of the Intraoperative Record and any orders documented therein. Any exceptions are noted below.
--- NOTE | 2019-06-18 09:53 | Fluoroscopy Report ---
FL cervical 2-3V CLINICAL HISTORY: C6-C7 ACDF COMPARISON STUDY: 06/17/2018 FLUOROSCOPY TIME: 18 seconds. NUMBER OF FLUOROSCOPIC IMAGES: 3 FINDINGS: 3 intraoperative fluoroscopic spot images are provided for interpretation. These reveal pos tsurgical changes of anterior cervical discectomies and fusions at the C4-5, C5-6, and C6-7 levels. T he C6-7 surgical level is new when compared the preceding study. IMPRESSION: 3 intraoperative fluoroscopic spot images demonstrating an interval C6-7 anterior cervica l discectomy and fusion ACT 112: Negative or not required by law. Electronically signed by: Spencer Dawson M.D. 06/18/2019 9:52 AM
[2019-06-18] MEDS ORDERED: ACETAMINOPHEN 500 MG TAB PO PRN (11:20)
[2019-06-18] MEDS ORDERED: DEXAMETHASONE SOD PHOSPHATE 8 MG in SYRINGE 0 ML IV PRN (11:20)
[2019-06-18] MEDS ORDERED: HYDROmorphone INJ 0.5 MG/0.5 ML SYR IV PRN (11:20)
[2019-06-18] MEDS ORDERED: NALOXONE HCL 0.4 MG/1 ML VIAL/CARP IV PRN (11:20)
[2019-06-18] MEDS ORDERED: ACETAMINOPHEN 1,000 MG/100 ML VIAL IV PRN (11:20)
[2019-06-18] MEDS ORDERED: LORazepam 0.5 MG/1 ML VIAL IV PRN (11:20)
[2019-06-18] MEDS ORDERED: SOD PHOSPHATE/SOD BIPHOSPHATE ENEMA 132 ML BTL PR PRN (11:20)
[2019-06-18] MEDS ORDERED: LORazepam 0.5 MG TAB PO PRN (11:20)
[2019-06-18] MEDS ORDERED: TRAMADOL HCL 50 MG TABLET PO PRN (11:20)
[2019-06-18] MEDS ORDERED: HYDROmorphone INJ 1 MG/ML SYRINGE IV PRN (11:20)
[2019-06-18] MEDS ORDERED: ONDANSETRON 4 MG OD TAB PO PRN (11:20)
[2019-06-18] MEDS ORDERED: RACEPINEPHRINE 2.25% NEBU SOLN 0.5 ML VIAL INH PRN (11:20)
[2019-06-18] MEDS ORDERED: DO NOT ADMINISTER PNEUMOCOCCAL VACCINE PRN (11:20)
[2019-06-18] MEDS ORDERED: MAGNESIUM HYDROXIDE SUSP 30 ML UDC PO PRN (11:20)
[2019-06-18] MEDS ORDERED: ALUMINUM/MAGNESIUM SUSP 30 ML UDC PO PRN (11:20)
[2019-06-18] MEDS ORDERED: FAMOTIDINE 20 MG TAB PO PRN (11:20)
[2019-06-18] MEDS ORDERED: DO NOT ADMINISTER FLU VACCINE PRN (11:20)
--- NOTE | 2019-06-18 12:02 | Anesthesiology Progress Note ---
Date of Service June 18, 2019 Anesthesia Post Procedure Vital Signs Vital Signs: Temp Pulse Pulse Resp BP BP Pulse Ox 06/18/19 11:45 79 16 121/69 99 06/18/19 11:35 77 14 98 06/18/19 10:55 36.8 C 77 15 133/59 L 99 06/18/19 10:45 76 16 141/57 H 99 06/18/19 10:35 78 16 139/62 100 06/18/19 10:25 83 16 144/58 H 100 06/18/19 10:15 91 H 16 147/68 H 100 06/18/19 10:09 36.4 C L 91 H 16 141/65 H 97 06/18/19 06:47 36.7 C 74 18 137/78 97 Transfer of Care Handoff Completed per policy Notes Mental Status: alert / awake / arousable and participated in evaluation Patient Amnestic to Procedure: Yes Nausea / Vomiting: adequately controlled Pain: adequately controlled Airway Patency, RR, SpO2: stable & adequate BP & HR: stable & adequate Hydration State: stable & adequate Anesthetic Complications: no major complications apparent
[2019-06-18] MEDS: LACTATED RINGER'S 1,000 ML IV SCH ×2 (12:43→22:02)
[2019-06-18] MEDS: OXYCODONE HCL IR 5 MG TAB (IMMEDIATE RELEASE) PO PRN ×2 (12:47→18:51)
[2019-06-18] MEDS: CEFAZOLIN 2000MG 2,000 MG/15 ML SYR IV SCH (16:42)
[2019-06-18] MEDS ORDERED: DOCUSATE SODIUM/SENNA 50/8.6MG TAB PO SCH (21:00)
[2019-06-19] MEDS: CEFAZOLIN 2000MG 2,000 MG/15 ML SYR IV SCH (00:21)
[2019-06-19] MEDS: OXYCODONE HCL IR 5 MG TAB (IMMEDIATE RELEASE) PO PRN ×2 (00:25→07:51)
[2019-06-19 06:40] LABS: Basophils # (auto) 0.01 K/uL (0-0.2); Basophils % (auto) 0.1 %; Eosinophils # (auto) 0.01 K/uL (0-0.5); Eosinophils % (auto) 0.1 %; Hematocrit (blood only) 36.1 % (37-47); Hemoglobin 11.7 g/dL (12.0-16.0); Immature Granulocytes # (auto) 0.02 K/uL (0.00-0.02); Immature Granulocytes % (auto) 0.2 %; Lymphocytes # (auto) 2.07 K/uL (1.2-3.4); Lymphocytes % (auto) 23.6 %; Mean Corpuscular Hemoglobin 30.6 pg (25-34); Mean Corpuscular Hgb Conc 32.4 g/dL (32-36); Mean Corpuscular Volume 94.5 fL (80-100); Monocytes # (auto) 0.81 K/uL (0.11-0.59); Monocytes % (auto) 9.2 %; Neutrophils # (auto) 5.86 K/uL (1.4-6.5); Neutrophils % (auto) 66.8 %; Platelet Count 271 K/uL (130-400); RDW Coefficient of Variation 12.9 % (11.5-14.5); RDW Standard Deviation 44.6 fL (36.4-46.3); Red Blood Count 3.82 M/uL (4.2-5.4); White Blood Count 8.78 K/uL (4.8-10.8)
[2019-06-19 07:13] LABS: BUN Creatinine Ratio 16.7 (10-20); Calcium 8.6 mg/dl (8.5-10.1); Creatinine Clr Calc Pharmacy 70.1 ml/min; Est GFR (African American) 95.9; Est GFR (Non-African American) 82.7; Potassium 3.9 mmol/L (3.5-5.1)
--- NOTE | 2019-06-19 08:51 | Discharge Summary ---
Date of Service June 19, 2019 Admission HPI Per Admitting Provider This is a 74-year-old female well-known to me having undergone previous cervical surgery years ago. She now presents with several weeks of severe pain numbness and weakness radiating down the left arm. The right arm appears to be asymptomatic. She describes pain emanating down the upper arm below the elbow into the thumb. All activities exacerbate her symptoms. She notes marked deficits with ability to grasp with her left hand. She is dropping things. The pain awaken her from sleep. Principal Diagnosis Cervical spinal stenosis with radiculopathy Discharge Data Allergies Allergy/AdvReac Type Severity Reaction Status Date / Time chlorhexidine Allergy Unknown SKIN FEELS Verified 06/18/19 06:40 LIKE IT'S BURNING Procedures Performed Operation Date: 06/18/19 07:45 Actual Procedures p C6-C7 Anterior Cervical Discectomy and Fusion with Coalition, Spinal Cord Monitoring(Not Applicable) - Cullen Amato DO Ordered Studies 06/18/19 07:45 FL cervical 2-3V Routine FL fluoroscopy <1hr Routine Hospital Course (1) Herniation of cervical intervertebral disc with radiculopathy: Patient underwent anterior cervical discectomy and fusion tolerated as well as taken orthopedic for postoperative. Postop day 1 she was swallowing well no hoarseness. She feels her strength is markedly improved as well as her pain. She is ambulating well. Subsequently she was discharged home. Discharge orders instructions from the chart for further review. Total Time Total Time Spent Total Time Spent (In Minutes): 20 minutes Discharge Plan Discharge Items Patient Disposition: Home - Self-Care Reason For Visit: Spinal Stenosis, Cervical Region Discharge Diagnosis: Cervical radiculopathy Activity: As commented below Non-emergency contact: Primary Care Provider Call non-emergency contact if: you have any medication questions Follow-up/Referrals: Flaquito Ward DO [Primary Care Provider] - Diet: Regular Addtl Attending Provider Instructions: ACTIVITY RECOMMENDATIONS: SELF CARE INSTRUCTIONS AFTER CERVICAL FUSIONS 1. No smoking. Smoking drastically decreases the chance of a solid fusion. 2. No bending, lifting more than 5 pounds, or twisting (roll like a log when turning in bed). 3. You may shower 3 days after surgery. Thoroughly dry wound. Do not soak in the tub. 4. Cervical collar: Must be worn at all times including sleeping. You may remove the brace only to bath, eat and if you are sitting in a recliner. 5. Please walk as much as you can for exercise. Gradually increase the distance that you walk as your endurance increases. SPECIAL CARE INSTRUCTIONS: VERY IMPORTANT TO READ AND REVIEW A. Do not take any anti-inflammatory medications (i.e. Indocin, Advil, Aspirin, Naprosyn, Aleve, Motrin, etc.) as these may inhibit the chance of a solid fusion. Tylenol is okay to take. B. Your surgical incision has been closed with a cosmetic suture under the skin that will dissolve in about 6 weeks. In 14 days, you can use a pair of clean scissors and cut the suture that is left outside of the skin at the ends of your incision. C. Complications are uncommon, but please contact us if you have any signs or symptoms of: 1. wound infection (fever higher than 102.5 degrees F, redness, separation of wound, drainage, or increasing pain from the incision) 2. blood clots in legs (pain, swelling, redness and warmth in legs) 3. urinary tract infection (fever higher than 102.5 degrees, burning upon urination or increased frequency of urination) 4. nerve problems (inability to walk on your toes or heels, numbness, loss of bowel or bladder control) 5. any other symptoms that concern you. D. Please call the office at if you have any concerns or questions about your operation or recovery. MANAGING PAIN AFTER SPINAL SURGERY 1. Narcotic medication is intended for short-term use and will be provided for surgical pain. Surgical pain usually lasts for a period of 4-6 weeks. Narcotic medication includes Percocet, Vicodin, Darvocet, Tylenol #3 or Lortab. 2. Longer-term pain is more appropriately treated with non-narcotic medication such as Tylenol ES. 3. Muscle spasm is not appropriately treated with narcotics. Muscle relaxers such as Soma, Flexeril or Skelaxin can be used along with Tylenol ES. 4. Remember that we all live with some "aches and pains". This is not unusual or uncommon after an injury or as we get older. 5. We will provide appropriate medication within the normal guidelines of their prescribed use. We will also be very cautious and aware of potential abuse and extended duration of patients' medication needs. 6. Please allow 2-3 days to process refills. Prescriptions will not be mailed but must be picked up at the office. FOLLOW UP VISIT: Keep your scheduled follow-up appointment. Any questions, please call the office at . Pending Studies at Discharge: No Stand-Alone Forms: [facility], Smoking Cessation Medications and DC Order Prescriptions: New tramadol 50 mg tablet 50 mg PO Q6H PRN (Reason: pain, moderate) Qty: 10 RF: 0 oxycodone 5 mg tablet 5 mg PO Q6H PRN (Reason: pain, severe) Qty: 10 RF: 0 Continued multivitamin Tablet 1 tab PO QAM RF: 0 fluoxetine 40 mg Capsule 40 mg PO QAM RF: 0 pantoprazole 40 mg Tablet,Delayed Release (Dr/Ec) 40 mg PO QAM RF: 0 estradiol 0.5 mg Tablet 0.5 mg PO QAM RF: 0 Calcium 600 + D(3) 600 mg calcium- 200 unit Capsule 1 tab PO QAM RF: 0 cyanocobalamin (vitamin B-12) [Vitamin B-12] 500 mcg Tablet 500 mcg PO DAILY RF: 0 cranberry 500 mg Capsule 500 mg PO DAILY RF: 0 alpha lipoic acid 100 mg Capsule 100 mg PO DAILY RF: 0 Discharge Orders: Discharge Order (Routine); Ordered 06/19/19 Ordered By: Cullen Amato Admission Data Admit Date/Time: 06/18/19 10:20 Attending Provider: Cullen Amato Admit Provider: Cullen Amato Primary Care Provider: Flaquito Ward
[2019-06-19] MEDS ORDERED: NON-FORMULARY MEDICATION (Alpha Lipoic Acid 100 MG) PO SCH (09:00)
[2019-06-19] MEDS ORDERED: estradioL 1 MG TAB PO SCH (09:00)
[2019-06-19] MEDS ORDERED: FLUOXETINE HCL 20 MG CAP PO SCH (09:00)
[2019-06-19] MEDS ORDERED: PANTOprazole 40 MG TAB PO SCH (09:00)
[2019-06-19] MEDS ORDERED: CYANOCOBALAMIN 500 MCG TABLET (VITAMIN B-12) PO SCH (09:00)
[2019-06-19] MEDS ORDERED: POLYETHYLENE (MIRALAX) 17 GM PACK PO SCH (09:36)
[2019-06-20] MEDS ORDERED: bisacodyL 10 MG SUPP PR PRN (09:36)
== END 2019-06-19 12:17 | disposition home or self-care (01) | DRG 473 ==
LOC: ASU 06:01 → 3E 10:20